=== PATIENT | male | born 1970 | race Caucasian/White ===

== ENCOUNTER → 2017-04-16 | Outpatient (CLI) | payer MEDICAID ==
[2017-04-16 15:44] LABS: MEAN CORPUSCULAR HEMOGLOBIN 32.1 pg (27.0-33.0); MEAN CORPUSCULAR HGB CONC 34.9 g/dl (32.0-36.5); MEAN CORPUSCULAR VOLUME 91.9 fl (80.0-96.0); RED CELL DISTRIBUTION WIDTH 12.6 % (11.5-14.5); WHITE BLOOD COUNT 8.3 K/mm3 (4.0-10.0)
[2017-04-16 16:20] LABS: ALBUMIN 3.8 GM/DL (3.2-5.2); ALBUMIN/GLOBULIN RATIO 1.12 (1.00-1.93); ALKALINE PHOSPHATASE 51 U/L (45-117); ALT/SGPT 37 U/L (12-78); ANION GAP 9 MEQ/L (8-16); AST/SGOT 19 U/L (15-37); BILIRUBIN,TOTAL 0.4 MG/DL (0.2-1.0); BLOOD UREA NITROGEN 16 MG/DL (7-18); CALCIUM LEVEL 8.9 MG/DL (8.5-10.1); CARBON DIOXIDE LEVEL 26 MEQ/L (21-32); CHLORIDE LEVEL 106 MEQ/L (98-107); CREATININE FOR GFR 1.22 MG/DL (0.70-1.30); DIGOXIN LEVEL 0.6 NG/ML (0.5-2.0); FREE T4 1.02 NG/DL (0.76-1.46); GLOMERULAR FILTRATION RATE > 60.0 (>60); GLUCOSE, FASTING 116 MG/DL (70-105); POTASSIUM SERUM 3.8 MEQ/L (3.5-5.1); SODIUM LEVEL 141 MEQ/L (136-145); TOTAL PROTEIN 7.2 GM/DL (6.4-8.2); URIC ACID 5.2 MG/DL (3.5-7.2)
== END ==
LOC: M LAB 14:59
PROVIDERS: ATTEND Family Medicine
DX: M10.9 Gout, unspecified (principal)

== ENCOUNTER 2017-06-25 12:40 | Emergency (ER) | payer MEDICAID, OTHER, SELFPAY ==
[~2017-06-25] VITALS: Ht 180.3 cm; Wt 90.1 kg
[2017-06-25] MEDS ORDERED: ALLO15TA PO (12:59)
[2017-06-25] MEDS ORDERED: PRAD150C PO (12:59)
[2017-06-25] MEDS ORDERED: COLC1TAB13 PO (12:59)
[2017-06-25] MEDS ORDERED: DIGO0.25 PO (12:59)
[2017-06-25] MEDS ORDERED: LEVO100T5 PO (12:59)
[2017-06-25] MEDS ORDERED: ATOR40TA75 PO (12:59)
[2017-06-25] MEDS ORDERED: FURO20TA2 PO (12:59)
[2017-06-25] MEDS ORDERED: METO-398 PO (12:59)
[2017-06-25] MEDS ORDERED: LISI10TA4 PO (12:59)
[2017-06-25] MEDS ORDERED: FENO134C PO (12:59)
[2017-06-25 14:01] LABS: BASO # 0.1 K/mm3 (0.0-0.2); BASO % 0.6 % (0.0-1.0); EOS # 0.2 K/mm3 (0.0-0.50); EOS % 1.4 % (0.0-3.0); LARGE UNSTAINED CELL # 0.1 K/mm3 (0.0-0.4); LYMPH # 2.3 K/mm3 (1.5-4.5); LYMPH % 21.2 % (24.0-44.0); MEAN CORPUSCULAR HEMOGLOBIN 31.3 pg (27.0-33.0); MEAN CORPUSCULAR HGB CONC 34.5 g/dl (32.0-36.5); MEAN CORPUSCULAR VOLUME 90.8 fl (80.0-96.0); MONO # 0.4 K/mm3 (0.0-0.8); MONO % 3.6 % (0.0-5.0); NEUTROPHILS # 7.5 K/mm3 (1.8-7.7); NEUTROPHILS % 72.3 % (36.0-66.0); PLATELET COUNT, AUTOMATED 226 k/mm3 (150-450); RED CELL DISTRIBUTION WIDTH 12.6 % (11.5-14.5); WHITE BLOOD COUNT 10.4 K/mm3 (4.0-10.0)
[2017-06-25 14:05] LABS: INR 1.13
[2017-06-25 14:12] LABS: MICROSCOPIC INDICATED? MAN YES (NO)
[2017-06-25 14:14] LABS: BACTERIA, URINE MOD AMOUNT; HYALINE CAST, URINE NONE SEEN /lpf (0-1); MICROSCOPIC EXAM PERFORMED; RBC, URINE TNTC /hpf (0-3); SQUAMOUS EPITHELIAL CELL URINE 0 /hpf (SMALL AMT); WBC, URINE 40-50 /hpf (0-3)
[2017-06-25 14:19] LABS: ANION GAP 7 MEQ/L (8-16); BLOOD UREA NITROGEN 13 MG/DL (7-18); CALCIUM LEVEL 9.5 MG/DL (8.5-10.1); CARBON DIOXIDE LEVEL 28 MEQ/L (21-32); CHLORIDE LEVEL 106 MEQ/L (98-107); CREATININE FOR GFR 1.04 MG/DL (0.70-1.30); GLOMERULAR FILTRATION RATE > 60.0 (>60); GLUCOSE, FASTING 109 MG/DL (70-105); POTASSIUM SERUM 4.1 MEQ/L (3.5-5.1); SODIUM LEVEL 141 MEQ/L (136-145)
[2017-06-25] MEDS ORDERED: CIPR-249 PO (14:42)
[2017-06-25 14:43] VITALS: BP 130/87
[2017-06-25] MEDS ORDERED: CIPROFLOXACIN 500 MG TAB PO ONE (14:45)
== END 2017-06-25 14:49 | disposition home or self-care (01) ==
LOC: M ED 12:40
DX: N30.01 Acute cystitis with hematuria (principal); I11.0 Hypertensive heart disease with heart failure; E07.9 Disorder of thyroid, unspecified; M10.9 Gout, unspecified; Z79.899 Other long term (current) drug therapy

== ENCOUNTER → 2017-07-23 | Outpatient (REF) | payer MEDICAID, OTHER, SELFPAY ==
[~2017-07-23] MED LIST: ALLO15TA PO; ATOR40TA75 PO; CIPR-249 PO; COLC1TAB13 PO; DIGO0.25 PO; FENO134C PO; FURO20TA2 PO; LEVO100T5 PO; LISI10TA4 PO; METO-398 PO; PRAD150C PO
== END ==
LOC: M SFHCLERA 16:49
PROVIDERS: ATTEND Family Medicine
DX: R31.9 Hematuria, unspecified (principal)

== ENCOUNTER → 2017-12-23 | Outpatient (REF) | payer OTHER | LOC: M SFHCLERA 08:19 | DX: I48.2 Chronic atrial fibrillation (principal); I10 Essential (primary) hypertension; M10.9 Gout, unspecified ==

== ENCOUNTER 2018-01-13 15:54 | Emergency (ER) | payer OTHER ==
[2018-01-13 17:06] LABS: KETONE, URINE AUTO RFX NEGATIVE (NEGATIVE); LEUKOCYTE ESTERASE UR AUTO RFX NEGATIVE (NEGATIVE); MUCUS, URINE RFX SMALL (NEGATIVE); NITRITE, URINE AUTO RFX NEGATIVE (NEGATIVE); RBC, URINE AUTO RFX TNTC /HPF (0-3); SQUAM EPITHELIAL CELL UR AURFX 0 /HPF (0-6); WBC, URINE AUTO RFX 6 /HPF (0-3)
[2018-01-13] MEDS: NS 1,000 ML IV (18:45)
[2018-01-13 19:10] LABS: BASO # 0.1 10^3/uL (0.0-0.2); BASO % 0.5 % (0.0-1.0); EOS # 0.3 10^3/uL (0.0-0.50); EOS % 2.3 % (0.0-3.0); HEMATOCRIT 41.7 % (42.0-52.0); HEMOGLOBIN 14.4 g/dl (14.0-18.0); IMMATURE GRANULOCYTE % 0.3 % (0-3.0); LYMPH # 3.4 10^3/uL (1.5-4.5); LYMPH % 28.3 % (24.0-44.0); MEAN CORPUSCULAR HEMOGLOBIN 31.2 pg (27.0-33.0); MEAN CORPUSCULAR HGB CONC 34.5 g/dl (32.0-36.5); MEAN CORPUSCULAR VOLUME 90.3 fl (80.0-96.0); MONO # 0.8 10^3/uL (0.0-0.8); MONO % 6.3 % (0.0-5.0); NEUTROPHILS # 7.4 10^3/uL (1.8-7.7); NEUTROPHILS % 62.3 % (36.0-66.0); PLATELET COUNT, AUTOMATED 238 10^3/uL (150-450); RED BLOOD COUNT 4.62 10^6/uL (4.30-6.10); RED CELL DISTRIBUTION WIDTH 13.3 % (11.5-14.5); WHITE BLOOD COUNT 11.9 10^3/uL (4.0-10.0)
[2018-01-13 19:30] LABS: ALBUMIN 4.1 GM/DL (3.2-5.2); ALBUMIN/GLOBULIN RATIO 1.08 (1.00-1.93); ALKALINE PHOSPHATASE 58 U/L (45-117); ALT/SGPT 33 U/L (12-78); ANION GAP 6 MEQ/L (8-16); AST/SGOT 23 U/L (7-37); BILIRUBIN,DIRECT < 0.1 MG/DL (0.0-0.2); BILIRUBIN,TOTAL 0.2 MG/DL (0.2-1.0); BLOOD UREA NITROGEN 15 MG/DL (7-18); CALCIUM LEVEL 9.1 MG/DL (8.5-10.1); CARBON DIOXIDE LEVEL 30 MEQ/L (21-32); CHLORIDE LEVEL 106 MEQ/L (98-107); CREATININE FOR GFR 1.02 MG/DL (0.70-1.30); GLOMERULAR FILTRATION RATE > 60.0 (>60); GLUCOSE, FASTING 95 MG/DL (70-100); SODIUM LEVEL 142 MEQ/L (136-145); TOTAL PROTEIN 7.9 GM/DL (6.4-8.2)
== END 2018-01-13 20:43 | disposition home or self-care (01) ==
LOC: M ED 15:54
DX: N30.91 Cystitis, unspecified with hematuria (principal); E86.0 Dehydration; I11.0 Hypertensive heart disease with heart failure; I50.9 Heart failure, unspecified; E78.5 Hyperlipidemia, unspecified; E03.9 Hypothyroidism, unspecified; I48.91 Unspecified atrial fibrillation; G47.33 Obstructive sleep apnea (adult) (pediatric); M10.9 Gout, unspecified; Z79.01 Long term (current) use of anticoagulants; F12.20 Cannabis dependence, uncomplicated
CPT/HCPCS: 82248

== ENCOUNTER 2018-07-04 19:15 | Emergency (ER) | payer OTHER ==
[2018-07-04] MEDS: ADACEL/BOOSTRIX VACCINE (DIPHTH/PERTUSS/ACELL/TETANUS)0.5ML SYR (90715) IM (19:43)
== END 2018-07-04 19:55 | disposition home or self-care (01) ==
LOC: M ED 19:15
DX: S30.811A Abrasion of abdominal wall, initial encounter (principal); X95.8XXA Assault by other firearm discharge, initial encounter; Y92.89 Other specified places as the place of occurrence of the external cause; I11.0 Hypertensive heart disease with heart failure; I50.9 Heart failure, unspecified; Z79.899 Other long term (current) drug therapy; Z79.890 Hormone replacement therapy
CPT/HCPCS: 90715

== ENCOUNTER 2018-07-19 09:43 | Emergency (ER) | payer OTHER | END 2018-07-19 11:11 | disposition home or self-care (01) | LOC: M ED 09:43 | DX: S20.212S Contusion of left front wall of thorax, sequela (principal); X95.8XXS Assault by other firearm discharge, sequela; Y92.89 Other specified places as the place of occurrence of the external cause; Y93.9 Activity, unspecified; Y99.9 Unspecified external cause status; I48.91 Unspecified atrial fibrillation; I50.9 Heart failure, unspecified; I10 Essential (primary) hypertension; G47.30 Sleep apnea, unspecified; E03.9 Hypothyroidism, unspecified; M10.9 Gout, unspecified; F12.10 Cannabis abuse, uncomplicated; Z79.899 Other long term (current) drug therapy | CPT/HCPCS: 71101 ==

== ENCOUNTER → 2019-07-26 | Outpatient (CLI) | payer OTHER ==
[~2019-07-26] MED LIST changes: -ALLO15TA PO; +ALLO300T2 PO; -METO-398 PO; +METO200T28 PO; -PRAD150C PO; +PRAD150C6 PO
[2019-07-26 06:48] LABS: BASO # 0.1 10^3/uL (0.0-0.2); BASO % 0.8 % (0.0-1.0); EOS # 0.3 10^3/uL (0.0-0.50); EOS % 3.3 % (0.0-3.0); HEMOGLOBIN 15.2 g/dl (13.5-17.5); LYMPH # 2.8 10^3/uL (1.5-4.5); LYMPH % 28.6 % (24.0-44.0); MEAN CORPUSCULAR HEMOGLOBIN 31.9 pg (27.0-33.0); MEAN CORPUSCULAR HGB CONC 33.8 g/dl (32.0-36.5); MEAN CORPUSCULAR VOLUME 94.5 fl (80.0-96.0); MONO # 0.6 10^3/uL (0.0-0.8); MONO % 6.2 % (0.0-5.0); NEUTROPHILS % 60.9 % (36.0-66.0); PLATELET COUNT, AUTOMATED 244 10^3/uL (150-450); RED BLOOD COUNT 4.76 10^6/uL (4.30-6.10); WHITE BLOOD COUNT 9.8 10^3/uL (4.0-10.0)
[2019-07-26 07:16] LABS: HEMOGLOBIN A1c 5.4 %
[2019-07-26 07:27] LABS: ALBUMIN 3.7 GM/DL (3.2-5.2); ALT/SGPT 39 U/L (12-78); BILIRUBIN,TOTAL 0.6 MG/DL (0.2-1.0); BLOOD UREA NITROGEN 16 MG/DL (7-18); CALCIUM LEVEL 9.3 MG/DL (8.5-10.1); CARBON DIOXIDE LEVEL 27 MEQ/L (21-32); CHLORIDE LEVEL 110 MEQ/L (98-107); CHOLESTEROL LEVEL 118 MG/DL (<200); CHOLESTEROL RISK RATIO 3.277 (<5); CREATININE FOR GFR 1.08 MG/DL (0.70-1.30); GLOMERULAR FILTRATION RATE > 60.0 (>60); GLUCOSE, FASTING 99 MG/DL (70-100); HDL CHOLESTEROL 36 MG/DL (>40); LDL CHOLESTEROL 52 MG/DL (<100); NON-HDL-C 82 MG/DL; POTASSIUM SERUM 4.2 MEQ/L (3.5-5.1); SODIUM LEVEL 140 MEQ/L (136-145); TOTAL PROTEIN 7.4 GM/DL (6.4-8.2); TRIGLYCERIDES LEVEL 148 MG/DL (<150)
== END ==
LOC: M LAB 06:09
PROVIDERS: ATTEND Family Medicine
DX: M10.9 Gout, unspecified (principal)

== ENCOUNTER 2019-10-04 07:41 | Emergency (ER) | payer OTHER ==
[~2019-10-04] VITALS: Ht 180.3 cm; Wt 100.0 kg
[2019-10-04] MEDS ORDERED: MITI1CAP (07:48)
[2019-10-04] MEDS ORDERED: ELIQ5TAB (07:48)
[2019-10-04] MEDS ORDERED: FLUORESCEIN OPHTH 1 MG STRIP OD ONE (08:30)
[2019-10-04] MEDS ORDERED: TETRACAINE 0.5% OPHTH SOLN 4ML OD ONE (08:30)
[2019-10-04] MEDS ORDERED: ISOVUE-370 76% 100ML VIAL (Q9967) As Ordered ONE (09:15)
[2019-10-04 09:22] LABS: BASO # 0.1 10^3/uL (0.0-0.2); BASO % 0.9 % (0.0-1.0); EOS # 0.3 10^3/uL (0.0-0.5); EOS % 3.1 % (0.0-3.0); HEMATOCRIT 45.2 % (42.0-52.0); HEMOGLOBIN 15.4 g/dl (13.5-17.5); LYMPH # 2.6 10^3/uL (1.5-5.0); LYMPH % 29.7 % (24.0-44.0); MEAN CORPUSCULAR HEMOGLOBIN 30.7 pg (27.0-33.0); MEAN CORPUSCULAR HGB CONC 34.1 g/dl (32.0-36.5); MONO # 0.6 10^3/uL (0.0-0.8); MONO % 6.5 % (0.0-5.0); NEUTROPHILS # 5.3 10^3/uL (1.5-8.5); NEUTROPHILS % 59.6 % (36.0-66.0); PLATELET COUNT, AUTOMATED 217 10^3/uL (150-450); RED BLOOD COUNT 5.02 10^6/uL (4.30-6.10); WHITE BLOOD COUNT 8.8 10^3/uL (4.0-10.0)
--- NOTE | 2019-10-04 09:53 | REP ---
CT orbits: 10/04/2019. Indication: Preseptal swelling. Comparison: None. Technique: Axial images of the orbits were obtained following 75 ml IV Isovue 370 administration. Findings: There are no acute ocular or intraorbital abnormalities. Periosteal mucosal thickening is present within the ethmoid air cells. There is mild periosteal mucosal thickening as well as frothy secretions within the left greater than right frontal sinuses. The mastoid air cells are clear. Impression: No acute ocular or intraorbital abnormalities. Paranasal sinus mucosal disease. Electronically Signed by Andi Pina DO 10/04/2019 09:44 A
[2019-10-04] MEDS ORDERED: diphenhydrAMINE CREAM 30GM TOP STA (11:06)
[2019-10-04] MEDS ORDERED: CEFD300CAP PO (11:10)
[2019-10-04] MEDS ORDERED: CLEO300C2 PO (11:10)
[2019-10-04 11:49] VITALS: BP 125/93
== END 2019-10-04 11:54 | disposition home or self-care (01) ==
LOC: M ED 07:41
DX: L03.213 Periorbital cellulitis (principal); J32.9 Chronic sinusitis, unspecified; Z79.899 Other long term (current) drug therapy; Z80.1 Family history of malignant neoplasm of trachea, bronchus and lung; Z82.49 Family history of ischemic heart disease and other diseases of the circulatory system; Z95.818 Presence of other cardiac implants and grafts
CPT/HCPCS: 36415; 70481; 80047; 85025; 99284; Q9967

== ENCOUNTER → 2019-12-07 | Outpatient (REF) | payer OTHER ==
[~2019-12-07] MED LIST changes: +CEFD300CAP PO; +CLEO300C2 PO; +ELIQ5TAB; +MITI1CAP; +ULTR50TA8 PO
== END ==
LOC: M SFHCLERA 09:40
PROVIDERS: ATTEND Family Medicine
DX: E03.9 Hypothyroidism, unspecified (principal); I48.20 Chronic atrial fibrillation, unspecified; Z53.8 Procedure and treatment not carried out for other reasons

== ENCOUNTER → 2020-05-07 | Outpatient (REF) | payer OTHER ==
[2020-05-07 14:29] LABS: APPEARANCE, URINE CLOUDY (CLEAR); BACTERIA, URINE AUTO NEGATIVE (NEGATIVE); BILIRUBIN, URINE AUTO NEGATIVE (NEGATIVE); BLOOD, URINE BLOOD 3+ (NEGATIVE); COLOR, URINE RED (YELLOW); GLUCOSE, URINE (UA) AUTO NEGATIVE (NEGATIVE); KETONE, URINE AUTO NEGATIVE (NEGATIVE); LEUKOCYTE ESTERASE, URINE AUTO NEGATIVE (NEGATIVE); MUCUS, URINE SMALL (NEGATIVE); NITRITE, URINE AUTO NEGATIVE (NEGATIVE); PROTEIN, URINE AUTO 2+ mg/dL (NEGATIVE); RBC, URINE AUTO TNTC /HPF (0-3); SPECIFIC GRAVITY URINE AUTO 1.012 (1.002-1.035); SQUAMOUS EPITHELIAL CELL UR AU 0 /HPF (0-6); UROBILINOGEN, URINE AUTO 0.2 mg/dL (0.0-2.0); WBC, URINE AUTO 8 /HPF (0-3)
== END ==
LOC: M LAB REF 14:11
PROVIDERS: ATTEND Physician Assistant Medical
DX: R31.9 Hematuria, unspecified (principal)

== ENCOUNTER → 2020-05-18 | Outpatient (CLI) | payer OTHER ==
[~2020-05-18] MED LIST changes: +ALLO10TA PO; +COLC0.6T47 PO; -COLC1TAB13 PO; +DULO1CAP4 PO; -ELIQ5TAB; +ELIQ5TAB PO; +FLOM0.4C39 PO; +LISI10TA22 PO; -LISI10TA4 PO; +NEUR600T PO; +OXYC1TAB23 PO; +TIZA4CAP PO; +VOLT1GEL15 TD
[2020-05-18 08:51] LABS: PLATELET COUNT, AUTOMATED 275 10^3/uL (150-450)
[2020-05-18 09:08] LABS: INR 1.18; PROTHROMBIN TIME 14.7 SECONDS (11.8-14.0)
== END ==
LOC: M LAB 08:21
PROVIDERS: ATTEND Orthopaedic Surgery Hand Surgery
DX: Z01.812 Encounter for preprocedural laboratory examination (principal); M47.22 Other spondylosis with radiculopathy, cervical region

== ENCOUNTER → 2020-07-05 | Outpatient (CLI) | payer OTHER ==
[~2020-07-05] MED LIST changes: -COLC0.6T47 PO; +COLC1TAB13 PO; -LISI10TA22 PO; +LISI10TA4 PO
== END ==
LOC: M RAD 12:02
PROVIDERS: ATTEND Physician Assistant
DX: N20.0 Calculus of kidney (principal); R10.9 Unspecified abdominal pain

== ENCOUNTER → 2020-07-05 | Outpatient (REF) | payer OTHER ==
[~2020-07-05] MED LIST changes: -ALLO10TA PO; -DULO1CAP4 PO; +ELIQ5TAB; -ELIQ5TAB PO; -FLOM0.4C39 PO; -NEUR600T PO; -OXYC1TAB23 PO; -TIZA4CAP PO; -VOLT1GEL15 TD
== END ==
LOC: M LAB REF 10:37
PROVIDERS: ATTEND Physician Assistant
DX: N39.0 Urinary tract infection, site not specified (principal)

== ENCOUNTER → 2020-07-21 | Outpatient (CLI) | payer OTHER ==
[~2020-07-21] MED LIST changes: +ALLO10TA PO; +DULO1CAP4 PO; -ELIQ5TAB; +ELIQ5TAB PO; +FLOM0.4C39 PO; +NEUR600T PO; +OXYC1TAB23 PO; +TIZA4CAP PO; +VOLT1GEL15 TD
[2020-07-21 11:30] LABS: BLOOD UREA NITROGEN 19 MG/DL (7-18); C REACTIVE PROTEIN QUANTITATIV 0.52 MG/DL (0.00-0.30); CREATININE FOR GFR 1.24 MG/DL (0.70-1.30); GLOMERULAR FILTRATION RATE > 60.0 (>60); RHEUMATOID FACTOR QUANT < 10.0 IU/ML (<15.0)
[2020-07-31 19:08] LABS: ANTINUCLEAR ANTIBODIES DIRECT Negative (Negative); HLA-B27 Negative (.)
== END ==
LOC: M LAB 09:27
PROVIDERS: ATTEND Physician Assistant
DX: M48.02 Spinal stenosis, cervical region (principal)

== ENCOUNTER → 2020-08-03 | Outpatient (REF) | payer OTHER ==
[2020-08-03 18:18] LABS: BASO # 0.1 10^3/uL (0.0-0.2); BASO % 0.7 % (0.0-1.0); EOS # 0.5 10^3/uL (0.0-0.5); EOS % 5.2 % (0.0-3.0); HEMATOCRIT 43.1 % (42.0-52.0); HEMOGLOBIN 14.1 g/dl (13.5-17.5); LYMPH # 2.9 10^3/uL (1.5-5.0); LYMPH % 33.4 % (24.0-44.0); MEAN CORPUSCULAR HEMOGLOBIN 29.9 pg (27.0-33.0); MEAN CORPUSCULAR HGB CONC 32.7 g/dl (32.0-36.5); MEAN CORPUSCULAR VOLUME 91.3 fl (80.0-96.0); MONO # 0.5 10^3/uL (0.0-0.8); MONO % 5.6 % (0.0-5.0); NEUTROPHILS # 4.8 10^3/uL (1.5-8.5); NEUTROPHILS % 54.8 % (36.0-66.0); RED BLOOD COUNT 4.72 10^6/uL (4.30-6.10); WHITE BLOOD COUNT 8.7 10^3/uL (4.0-10.0)
[2020-08-03 18:31] LABS: PROTHROMBIN TIME 13.4 SECONDS (11.8-14.0)
[2020-08-03 18:36] LABS: BLOOD UREA NITROGEN 16 MG/DL (7-18); CALCIUM LEVEL 9.1 MG/DL (8.5-10.1); CARBON DIOXIDE LEVEL 30 MEQ/L (21-32); CHLORIDE LEVEL 106 MEQ/L (98-107); CREATININE FOR GFR 1.19 MG/DL (0.70-1.30); GLOMERULAR FILTRATION RATE > 60.0 (>60); GLUCOSE, FASTING 95 MG/DL (70-100); POTASSIUM SERUM 4.9 MEQ/L (3.5-5.1); SODIUM LEVEL 141 MEQ/L (136-145)
== END ==
LOC: M SFHCLUC 17:21
PROVIDERS: ATTEND Family Medicine
DX: Z01.812 Encounter for preprocedural laboratory examination (principal)

== ENCOUNTER → 2020-08-05 | Outpatient (CLI) | payer OTHER | LOC: M LABSMTC 09:11 | PROVIDERS: ATTEND Anesthesiology | DX: Z01.818 Encounter for other preprocedural examination (principal); Z11.59 Encounter for screening for other viral diseases; Z20.828 Contact with and (suspected) exposure to other viral communicable diseases | CPT/HCPCS: C9803; U0003 ==

== ENCOUNTER → 2020-08-05 | Outpatient (CLI) | payer OTHER ==
[2020-08-05 10:58] LABS: HEMATOCRIT 41.3 % (42.0-52.0); MEAN CORPUSCULAR HEMOGLOBIN 30.8 pg (27.0-33.0); MEAN CORPUSCULAR HGB CONC 33.9 g/dl (32.0-36.5); PLATELET COUNT, AUTOMATED 179 10^3/uL (150-450); RED BLOOD COUNT 4.54 10^6/uL (4.30-6.10); WHITE BLOOD COUNT 7.3 10^3/uL (4.0-10.0)
[2020-08-05 11:08] LABS: INR 1.02; PROTHROMBIN TIME 13.6 SECONDS (11.8-14.0)
[2020-08-05 11:09] LABS: PARTIAL THROMBOPLASTIN TIME 30.4 SECONDS (25.0-38.4)
[2020-08-05 11:25] LABS: BLOOD UREA NITROGEN 15 MG/DL (7-18); CALCIUM LEVEL 9.1 MG/DL (8.5-10.1); CARBON DIOXIDE LEVEL 29 MEQ/L (21-32); CHLORIDE LEVEL 106 MEQ/L (98-107); CREATININE FOR GFR 1.08 MG/DL (0.70-1.30); GLOMERULAR FILTRATION RATE > 60.0 (>60); GLUCOSE, FASTING 98 MG/DL (70-100); SODIUM LEVEL 140 MEQ/L (136-145)
== END ==
LOC: M LAB 09:23
PROVIDERS: ATTEND Nurse Practitioner Family
DX: Z01.812 Encounter for preprocedural laboratory examination (principal); N20.0 Calculus of kidney

== ENCOUNTER 2020-08-10 07:17 | Day surgery (SDC) | payer OTHER ==
[~2020-08-10] VITALS: Ht 180.3 cm; Wt 100.3 kg
[~2020-08-10 07:17] MED LIST changes: -DULO1CAP4 PO; +LIDOCAINE 1% MDV 20ML VIAL SQ PRN; +LR 1,000 ML IV ONE; +ceFAZolin SOD 2 GM in IV 1 EA IV ONE
[2020-08-10] MEDS ORDERED: dexameTHASONE 4 MG/ML 1ML VIAL (J1100 PER 1MG) As Ordered ONE (07:22)
[2020-08-10] MEDS ORDERED: propofoL 500 MG/50 ML VIAL As Ordered ONE (07:22)
[2020-08-10] MEDS ORDERED: LIDOCAINE 2% 100MG/5ML SDV (FOR ANES.) As Ordered ONE (07:22)
[2020-08-10] MEDS ORDERED: ONDANSETRON 4MG/2ML VIAL As Ordered ONE (07:22)
[2020-08-10] MEDS ORDERED: fentaNYL 100 MCG/2 ML INJECTION (J3010) As Ordered ONE (08:00)
[2020-08-10] MEDS ORDERED: OXYC1TAB23 PO (08:28)
--- NOTE | 2020-08-10 08:58 | ROOPDOC ---
[facility] Report Of Operation Report of Operation DATE OF PROCEDURE: 08/10/20 PREPROCEDURE DIAGNOSIS: Kidney stone. POSTPROCEDURE DIAGNOSIS: Kidney stone. PROCEDURE: Right extracorporeal shock wave lithotripsy. SURGEON: Miri Puente MD MANAGER EQUITY: None. ANESTHESIA: Monitored anesthesia care (MAC). OPERATIVE INDICATIONS: This is a 49-year-old male recently found to have an 11mm stone in his right renal pelvis. He was brought to the operating room today for treatment. DESCRIPTION OF PROCEDURE: The patient was brought to the operating room and monitored anesthesia care (MAC) was administered. Prophylactic antibiotics were infused. He was then placed in a supine position in preparation for right-sided extr acorporeal shock wave lithotripsy. Fluoroscopy was utilized to monitor stone position and fragmentation throughout the procedure. Shock waves were then delivered to the 11 mm stone, ungated. There were no arrhythmias. The stone did appear to fragment well. After 2500 shocks, the procedure was concluded. The patient was then awakened from anesthesia and transported to the recovery room in stable condition. Estimated blood loss: Zero mL. Complications: None. Specimens: None. Plan: The patient will followup in the clinic in a few weeks with imaging prior to assess for residual stone burden. MIRI PUENTE MD Aug 10, 2020 08:58
[2020-08-10 09:45] VITALS: BP 125/90
[2020-08-10] MEDS ORDERED: PERCOCET 5MG/325MG TAB PO PRN (10:00)
[2020-08-10] MEDS ORDERED: ONDANSETRON 4MG/2ML VIAL IV PRN (10:00)
[2020-08-10] MEDS ORDERED: fentaNYL 100 MCG/2 ML INJECTION (J3010) IV PRN (10:00)
[2020-08-10] MEDS ORDERED: LR 1,000 ML IV SCH (10:00)
--- NOTE | 2020-08-28 11:49 | REP ---
ABDOMINAL RADIOGRAPHS: CLINICAL: Kidney stone. COMPARISON: 07/05/20 TECHNIQUE: Two supine views of the abdomen and pelvis. FINDINGS: There is a 9-10 mm calculus in the right renal pelvis. No further obvious urinary tract calcifications are identified. The bowel gas pattern is nonspecific. No organomegaly. Skeletal structures are intact. IMPRESSION: 9-10 mm nonobstructing right renal calculus. MTDD
[2020-09-06] MEDS ORDERED: DULO1CAP4 PO (08:58)
== END 2020-08-10 09:58 | disposition home or self-care (01) ==
LOC: M SDC 07:17
PROVIDERS: ATTEND Urology
DX: N20.0 Calculus of kidney (principal)
CPT/HCPCS: 50590; 74018; J1100; J2405; J3010

== ENCOUNTER → 2020-08-28 | Outpatient (CLI) | payer OTHER ==
[~2020-08-28] MED LIST changes: +DULO1CAP4 PO; -LIDOCAINE 1% MDV 20ML VIAL SQ PRN; -LR 1,000 ML IV ONE; -ceFAZolin SOD 2 GM in IV 1 EA IV ONE
--- NOTE | 2020-09-06 10:00 | REP ---
KUB: SINGLE VIEW HISTORY: Kidney calculus. COMPARISON STUDY: 08/10/2020. COMPARISON CT STUDY: 07/14/2020. FINDINGS: There is an irregular oval-shaped calculus projecting at the right mid kidney measuring 9 mm in diameter. This is a little more central in the kidney lateral to its position on 08/10/2020. There is some vascular calcification. No ureteral or bladder calculus is seen. No left-sided calculus is observed. IMPRESSION: A 9-mm calculus intrarenal in position on todays KUB right kidney. MTDD
== END ==
LOC: M RAD 09:33
PROVIDERS: ATTEND Nurse Practitioner Women's Health
DX: N20.0 Calculus of kidney (principal)

== ENCOUNTER → 2020-08-30 | Outpatient (REF) | payer OTHER ==
[2020-09-07 18:08] LABS: Ca Ox Monohydrate 100 % (.); Size 3x5 mm (.)
== END ==
LOC: M SMT 13:20
PROVIDERS: ATTEND Nurse Practitioner Women's Health
DX: N20.0 Calculus of kidney (principal)

== ENCOUNTER → 2020-09-02 | Outpatient (CLI) | payer OTHER | LOC: M LABSMTC 09:35 | PROVIDERS: ATTEND Anesthesiology | DX: Z01.812 Encounter for preprocedural laboratory examination (principal); Z20.828 Contact with and (suspected) exposure to other viral communicable diseases | CPT/HCPCS: C9803; U0003 ==

== ENCOUNTER → 2020-09-04 | Outpatient (CLI) | payer OTHER ==
[2020-09-04 15:44] LABS: APPEARANCE, URINE CLEAR (CLEAR); BACTERIA, URINE AUTO NEGATIVE (NEGATIVE); BILIRUBIN, URINE AUTO NEGATIVE (NEGATIVE); BLOOD, URINE BLOOD NEGATIVE (NEGATIVE); COLOR, URINE YELLOW (YELLOW); GLUCOSE, URINE (UA) AUTO NEGATIVE (NEGATIVE); KETONE, URINE AUTO NEGATIVE (NEGATIVE); LEUKOCYTE ESTERASE, URINE AUTO NEGATIVE (NEGATIVE); NITRITE, URINE AUTO NEGATIVE (NEGATIVE); PROTEIN, URINE AUTO NEGATIVE (NEGATIVE); RBC, URINE AUTO 3 /HPF (0-3); SPECIFIC GRAVITY URINE AUTO 1.012 (1.002-1.035); SQUAMOUS EPITHELIAL CELL UR AU 0 /HPF (0-6); UROBILINOGEN, URINE AUTO 0.2 mg/dL (0.0-2.0); WBC, URINE AUTO 1 /HPF (0-3)
[2020-09-04 15:55] LABS: HEMATOCRIT 37.9 % (42.0-52.0); HEMOGLOBIN 12.5 g/dl (13.5-17.5); MEAN CORPUSCULAR HEMOGLOBIN 29.6 pg (27.0-33.0); MEAN CORPUSCULAR VOLUME 89.8 fl (80.0-96.0); RED BLOOD COUNT 4.22 10^6/uL (4.30-6.10); WHITE BLOOD COUNT 8.3 10^3/uL (4.0-10.0)
[2020-09-04 16:02] LABS: INR 1.03; PROTHROMBIN TIME 13.7 SECONDS (12.5-14.3)
[2020-09-04 16:03] LABS: PARTIAL THROMBOPLASTIN TIME 28.8 SECONDS (24.2-38.5)
[2020-09-04 16:13] LABS: CALCIUM LEVEL 9.6 MG/DL (8.5-10.1); CREATININE FOR GFR 1.42 MG/DL (0.70-1.30); GLOMERULAR FILTRATION RATE 56.4 (>60); POTASSIUM SERUM 3.8 MEQ/L (3.5-5.1)
--- NOTE | 2020-09-11 14:48 | REP ---
KUB ABDOMEN AND PELVIS HISTORY: Right renal stone. TECHNIQUE: Single AP view of the abdomen and pelvis is performed. FINDINGS: Bowel gas pattern is normal with no bowel obstruction. Oval calcification again overlies the mid right kidney 9 mm in diameter, unchanged since the prior study of 08/28/2020. There are mild vascular calcifications in the right pelvis. There are no new findings. IMPRESSION: Stable right renal calculus. MTDD
== END ==
LOC: M LAB 13:12
PROVIDERS: ATTEND Nurse Practitioner Women's Health
DX: Z01.818 Encounter for other preprocedural examination (principal); N20.0 Calculus of kidney

== ENCOUNTER 2020-09-07 10:31 | Day surgery (SDC) | payer OTHER ==
[~2020-09-07] VITALS: Ht 180.3 cm; Wt 98.4 kg
[~2020-09-07 10:31] MED LIST changes: +LR 1,000 ML IV ONE; +ceFAZolin SOD 2 GM in IV 1 EA IV ONE
[2020-09-07] MEDS ORDERED: MIDAZOLAM INJ 2MG/2ML VIAL (J2250 PER 1MG) As Ordered ONE (11:17)
[2020-09-07] MEDS ORDERED: ONDANSETRON 4MG/2ML VIAL As Ordered ONE (11:17)
[2020-09-07] MEDS ORDERED: propofoL 200 MG/20 ML VIAL As Ordered ONE (11:17)
[2020-09-07] MEDS ORDERED: fentaNYL 100 MCG/2 ML INJECTION (J3010) As Ordered ONE (11:17)
[2020-09-07] MEDS ORDERED: LIDOCAINE 2% 100MG/5ML SDV (FOR ANES.) As Ordered ONE (11:17)
[2020-09-07] MEDS ORDERED: OXYC1TAB23 PO (11:43)
[2020-09-07] MEDS ORDERED: FLOM0.4C39 PO (11:43)
[2020-09-07] MEDS ORDERED: KETAMINE HCL 200 MG/20 ML VIAL As Ordered ONE (12:08)
--- NOTE | 2020-09-07 12:22 | ROOPDOC ---
[facility] Report Of Operation Report of Operation DATE OF PROCEDURE: 09/07/20 PREPROCEDURE DIAGNOSIS: Kidney stone. POSTPROCEDURE DIAGNOSIS: Kidney stone. PROCEDURE: Right extracorporeal shock wave lithotripsy (ESWL). SURGEON: Miri Puente MD ASSISTANT REFINERY OPERATOR: None. ANESTHESIA: Monitored anesthesia care (MAC). OPERATIVE INDICATIONS: This is a 49-year-old male recently who underwent a right ESWL approximately 1 month ago for an 8mm upper pole kidney stone. Follow up imaging was notable for a moderate sized fragment still present in the upper pole of the right kidney. He is brought back to the operating room today for a repeat ESWL to fragment the remainder of the stone. DESCRIPTION OF PROCEDURE: The patient was brought to the operating room and monitored anesthesia care (MAC) was administered. Prophylactic antibiotics were infused. He was then placed in the supine position for a right ESWL. Fluoroscopy and ultrasonography were utilized to monitor stone position and fragmentation throughout the procedure. Shock waves were then delivered to the kidney stone, ungated. The stone appeared to fragment well. There were no arrhythmias. After 2,000 shocks, the procedure was concluded. The patient was then awakened from anesthesia and transported to the recovery room in stable condition. Estimated blood loss: Zero mL. Complications: None. Specimens: None. Plan: The patient will followup in the clinic in a few weeks with imaging prior to assess for residual stone burden. MIRI PUENTE MD Sep 07, 2020 12:14
[2020-09-07 13:00] VITALS: BP 133/82
--- NOTE | 2020-09-12 08:08 | REP ---
KUB: SINGLE VIEW HISTORY: Right renal stone. COMPARISON: KUB study 09/04/2020. FINDINGS: There is an 8-mm calculus overlying the right mid renal silhouette on todays KUB unchanged from the comparison study. A phlebolith is noted in the right pelvis. The bowel gas pattern is unremarkable. Flank stripes are intact. No other pathologic calcification is seen. IMPRESSION: Intrarenal nephrolithiasis right kidney. An 8-mm stone right mid kidney. MTDD
== END 2020-09-07 13:11 | disposition home or self-care (01) ==
LOC: M SDC 10:31
PROVIDERS: ATTEND Urology
DX: N20.0 Calculus of kidney (principal); I10 Essential (primary) hypertension; I48.91 Unspecified atrial fibrillation; Z79.01 Long term (current) use of anticoagulants; Z79.899 Other long term (current) drug therapy; E78.5 Hyperlipidemia, unspecified; G47.30 Sleep apnea, unspecified; F12.10 Cannabis abuse, uncomplicated
CPT/HCPCS: 50590; 74018; J0690; J2250; J2405; J3010

== ENCOUNTER → 2020-09-13 | Outpatient (CLI) | payer OTHER ==
[~2020-09-13] MED LIST changes: -LR 1,000 ML IV ONE; -ceFAZolin SOD 2 GM in IV 1 EA IV ONE
== END ==
LOC: M LABSMTC 11:46
PROVIDERS: ATTEND Physical Medicine & Rehabilitation
DX: Z20.828 Contact with and (suspected) exposure to other viral communicable diseases (principal)

== ENCOUNTER → 2020-10-04 | Outpatient (CLI) | payer OTHER ==
--- NOTE | 2020-10-04 17:03 | REP ---
INDICATION: CALCULUS OF KIDNEY, FILE RM. COMPARISON: 09/07/2020. TECHNIQUE: AP view of the abdomen and pelvis performed. FINDINGS: Bowel gas pattern is normal with no evidence of bowel obstruction. There is a calcific density seen in a right paravertebral location at the L3-4 level, measuring 7 mm in diameter. This appears to be located in the right renal collecting system on the prior study. I presume is now 8 located in the right ureter. There are 2 tiny calcific densities seen just above that each measuring about 3 mm. No new pelvic calcifications are seen. IMPRESSION: Presumed right ureteral calculus 7 mm in diameter at the L3-4 level. There appear to be 2 tiny calcific densities just above that as well within the right ureter. <Electronically signed by Mike House > 10/04/20 1317
== END ==
LOC: M RAD 13:56
PROVIDERS: ATTEND Nurse Practitioner Women's Health
DX: N20.0 Calculus of kidney (principal)

== ENCOUNTER → 2020-10-05 | Outpatient (REF) | payer OTHER | LOC: M SMT 13:08 | PROVIDERS: ATTEND Nurse Practitioner Women's Health | DX: N20.0 Calculus of kidney (principal) ==

== ENCOUNTER → 2020-10-23 | Outpatient (CLI) | payer OTHER ==
[2020-10-23 11:50] LABS: BLOOD UREA NITROGEN 14 MG/DL (7-18); CREATININE FOR GFR 1.18 MG/DL (0.70-1.30); GLOMERULAR FILTRATION RATE > 60.0 (>60)
== END ==
LOC: M LAB 10:15
PROVIDERS: ATTEND Physician Assistant
DX: M50.320 Other cervical disc degeneration, mid-cervical region, unspecified level (principal)

== ENCOUNTER 2021-03-10 10:11 | Emergency (ER) | payer OTHER ==
[~2021-03-10] VITALS: Ht 180.3 cm; Wt 103.3 kg
[~2021-03-10 10:11] MED LIST changes: +COLC0.6T47 PO; -COLC1TAB13 PO; +LISI10TA22 PO; -LISI10TA4 PO
[2021-03-10] MEDS ORDERED: GABA800T4 (10:22)
--- NOTE | 2021-03-10 11:42 | REP ---
INDICATION: FP h/o stones COMPARISON: 07/14/2020. TECHNIQUE: CT Scan of the abdomen and pelvis was performed without intravenous contrast. Sagittal and coronal reconstruction images performed. FINDINGS: Lung bases: Unremarkable. Liver: Grossly unremarkable. Gallbladder: Unremarkable. Spleen: Grossly unremarkable.. Adrenals: Normal. Pancreas: Grossly unremarkable.. Kidneys: There is a punctate calculus in the right lower pole collecting system, and 2 others in the left mid and lower renal collecting systems. There is moderate right hydroureteronephrosis which is caused by a 6 mm calculus in the distal right ureter just above the level of the hip joint, and there is another 3 mm calculus just superior to that in the right ureter. Small and large bowel: Grossly unremarkable. Free fluid: None. Abdominal aorta: No aneurysm. Adenopathy: None. Appendix: Not inflamed. Osseous structures: Unremarkable. Pelvis: No mass. No bladder calculus seen. IMPRESSION: There is moderate right hydroureteronephrosis which is caused by a 6 mm calculus in the distal right ureter just above the level of the hip joint, and there is another 3 mm calculus just superior to that in the right ureter. <Electronically signed by Mike House > 03/10/21 113
[2021-03-10] MEDS ORDERED: FLOM0.4C39 PO (12:19)
[2021-03-10 12:29] VITALS: BP 140/80
== END 2021-03-10 12:31 | disposition home or self-care (01) ==
LOC: M ED 10:11
DX: N13.39 Other hydronephrosis (principal); I11.0 Hypertensive heart disease with heart failure; I50.9 Heart failure, unspecified; E78.5 Hyperlipidemia, unspecified; I48.91 Unspecified atrial fibrillation; G47.30 Sleep apnea, unspecified; E03.9 Hypothyroidism, unspecified; G89.29 Other chronic pain; M54.2 Cervicalgia; Z79.01 Long term (current) use of anticoagulants; Z79.899 Other long term (current) drug therapy

== ENCOUNTER → 2021-04-03 | Outpatient (REF) ==
[~2021-04-03] MED LIST changes: +GABA800T4
--- NOTE | 2021-04-03 14:06 | REP ---
INDICATION: DDD. COMPARISON: Comparison right shoulder radiographs November 11, 2019.. TECHNIQUE: Three views of the right shoulder are provided. FINDINGS: The right glenohumeral and right acromioclavicular joints are normally aligned. Periarticular soft tissues are unremarkable. No fracture or subluxation is seen. The visualized right hemithorax structures are unremarkable. IMPRESSION: Negative right shoulder radiographs. <Electronically signed by Nickolas Burns > 04/03/21 [id number]
--- NOTE | 2021-04-03 14:27 | REP ---
INDICATION: DDD. COMPARISON: None. TECHNIQUE: AP, lateral, swimmer's, and open-mouth views of the cervical spine. FINDINGS: Alignment and lordosis maintained. Vertebral bodies are intact and there is no acute fracture/compression injury or subluxation. Mild/moderate endplate sclerosis and disc space narrowing with subtle marginal spurring at C6-7. Remainder of the examination is essentially age-appropriate. IMPRESSION: Mild/moderate focal degenerative spondylosis at C6-7. <Electronically signed by Hill Root > 04/03/21 [id number]
== END ==
LOC: M RAD 08:03
PROVIDERS: ATTEND Internal Medicine
DX: M54.5 Low back pain (principal)

== ENCOUNTER → 2021-07-02 | Outpatient (CLI) | payer OTHER ==
[~2021-07-02] MED LIST changes: +PREG25CA2
[2021-07-02 14:22] LABS: BLOOD UREA NITROGEN 14 MG/DL (7-18); GLOMERULAR FILTRATION RATE > 60.0 (>56)
== END ==
LOC: M LAB 12:33
PROVIDERS: ATTEND Internal Medicine Endocrinology, Diabetes & Metabolism
DX: M25.511 Pain in right shoulder (principal)

== ENCOUNTER → 2021-09-10 | Outpatient (CLI) | payer OTHER ==
[~2021-09-10] MED LIST changes: +ISOVUE-300 61% 50ML VIAL As Ordered ONE; -PREG25CA2; +PROHANCE 279.3MG/ML 5ML VIAL As Ordered ONE
--- NOTE | 2021-09-10 09:30 | REP ---
INDICATION: PAIN RT SHOULDER. COMPARISON: 11/30/2019 TECHNIQUE: Pre and post contrast 3T MRI of the right shoulder with MRI arthrogram was performed utilizing various sequences. The shoulder joint injection was performed by Mayco DIAZ. FINDINGS: The pre injection portion of the examination shows hypertrophic degenerative change involving the acromioclavicular joint which is moderate. The acromion process is type 1 status quo. There is patchy and linear T2 hyper signal seen in the supraspinatus tendon increased from the prior exam. There is no evidence of musculotendinous retraction. Mild supraspinatus muscle atrophy has developed. There is no evidence of coracohumeral or coracoacromial ligamentous thickening. There is no significant change in appearance of the subscapularis, infraspinatus, or teres minor tendons. There is no glenohumeral joint effusion. There is a small amount of fluid the subcoracoid recess. Linear T2 hyper signal changes have developed/increased compared to the prior exam. The post injection portion examination shows linear hyper signal in the superior labrum nearly anterior to posterior. There is anterior superior labral truncation. None of the injected fluid has migrated superior to the supraspinatus tendon. IMPRESSION: 1. There is a SLAP tear or nearly a SLAP tear. 2. Supraspinatus tendinitis/tendinosis which is increased from the prior exam. 3. AC joint DJD. 4. Mild supraspinatus muscle atrophy. 5. Other findings as described above. <Electronically signed by Luke Henley > 09/10/21 9901
--- NOTE | 2021-09-10 16:39 | REP ---
INDICATION: PAIN RT SHOULDER. COMPARISON: None TECHNIQUE: The procedure was performed by JOE Mccrary, under the direct supervision of Dr. House. The benefits and risks of the procedure were explained to the patient, and an informed consent was obtained. Directly prior to the start of the procedure, a formal time-out was completed in the procedure room. The right glenohumeral joint space was localized using fluoroscopic guidance. The skin was prepped and draped in a sterile fashion. Approximately 5 mL of 1% Lidocaine 10 mg/ml was used as a local anesthetic. Using fluoroscopic guidance, a #22 gauge spinal needle was inserted and advanced into the right glenohumeral joint space. Approximately 1 mL of Isovue 300 was injected to verify placement. Twelve mL of a solution containing 20 mL of sterile saline and 0.15 mL of ProHance was injected into the joint space. The needle was removed and the patient was taken to MRI for post procedural imaging. FINDINGS: The patient tolerated the procedure well and there were no immediate complications. IMPRESSION: Fluoroscopically guided right shoulder MRI arthrogram injection. 0.1 minutes of fluoroscopy time was utilized for this procedure. Some fluoroscopic images are performed with last image hold technology. These images require no additional radiation. <Electronically signed by Nissa Kerr > 09/10/21 0947 <Electronically signed by Mike House > 09/10/21 [id number]
== END ==
LOC: M RADPRO 06:22
PROVIDERS: ATTEND Physician Assistant Surgical
DX: R93.7 Abnormal findings on diagnostic imaging of other parts of musculoskeletal system (principal); M25.511 Pain in right shoulder
CPT/HCPCS: 23350; 73223; 77002; A9576; Q9967

== ENCOUNTER → 2021-09-13 | Outpatient (CLI) | payer OTHER ==
--- NOTE | 2021-09-13 09:15 | REP ---
INDICATION: LT SHOULDER PAIN ? LABRUM TEAR VS RCT. COMPARISON: None. TECHNIQUE: Coronal oblique T1, T2 fat sat, sagittal oblique T2 fat sat, axial T2 fat sat, gradient echo. Post arthrogram T1 fat sat and T2 fat sat in multiple planes. FINDINGS: Rotator cuff: There is tendinopathy/tendinitis of the subscapularis, supraspinatus and infraspinatus tendons. No discrete rotator cuff tendon tear is seen. Acromioclavicular joint: There are mild hypertrophic degenerative changes of the acromioclavicular joint Acromion: Type 2 Biceps Tendon: In bicipital groove, no tenosynovitis. Hill Sach's deformity: None. Deltoid muscle: No abnormal signal. Biceps labral complex: There is a tear at the base of the biceps labral complex. Labrum: There is a diffuse SLAP tear. Cartilage: There is mild chondromalacia at the glenohumeral joint with no focal cartilaginous defect. Bone marrow: No significant abnormal signal. Joint fluid: No effusion. IMPRESSION: Tendinopathy/tendinitis of the subscapularis, supraspinatus and infraspinatus tendons. No discrete rotator cuff tendon tear. There are mild hypertrophic degenerative changes of the acromioclavicular joint. There is a diffuse SLAP tear which also involves the base of the biceps labral complex. <Electronically signed by Mike House > 09/13/21 0911
--- NOTE | 2021-09-13 17:31 | REP ---
INDICATION: LT SHOULDER PAIN ? LABRUM TEAR VS RCT. COMPARISON: None TECHNIQUE: The procedure was performed by JOE Ospina, under the direct supervision of Dr. House. The benefits and risks of the procedure were explained to the patient, and an informed consent was obtained. Directly prior to the start of the procedure, a formal time-out was completed in the procedure room. The left shoulder joint space was localized using fluoroscopic guidance. The skin was prepped and draped in a sterile fashion. Approximately 5 mL of 1% Lidocaine 10 mg/ml was used as a local anesthetic. Using fluoroscopic guidance, a #22 gauge spinal needle was inserted and advanced into the left shoulder joint space. Approximately 1 mL of Isovue 300 was injected to verify placement. Ten mL of a solution containing 20 mL of sterile saline and 0.15 mL of ProHance was injected into the joint space. The needle was removed and the patient was taken to MRI for post procedural imaging. FINDINGS: The patient tolerated the procedure well and there were no immediate complications. IMPRESSION: The patient tolerated the procedure well. MRI imaging was performed immediately after the procedure. 0.1 minutes of fluoroscopy time was utilized for this procedure. Some fluoroscopic images are performed with last image hold technology. These images require no additional radiation. <Electronically signed by Cleopatra Mccabe > 09/13/21 1200 <Electronically signed by Mike House > 09/13/21 9347
== END ==
LOC: M RADPRO 06:32
PROVIDERS: ATTEND Physician Assistant Surgical
DX: M25.512 Pain in left shoulder (principal)
CPT/HCPCS: 23350; 73223; 77002; A9576; Q9967

== ENCOUNTER 2021-10-02 11:16 | Emergency (ER) | payer OTHER ==
[~2021-10-02] VITALS: Ht 180.3 cm; Wt 104.5 kg
[~2021-10-02 11:16] MED LIST changes: -ISOVUE-300 61% 50ML VIAL As Ordered ONE; -PROHANCE 279.3MG/ML 5ML VIAL As Ordered ONE
[2021-10-02 11:19] VITALS: BP 140/103
[2021-10-02] MEDS ORDERED: PREG25CA2 (13:11)
--- OUTSIDE RECORDS SUMMARY | 2021-10-02 13:21 | CCD ---
Continuity of Care Document (CCD) Created on: 08/03/2021 Pascual Loya External Reference #: [id number] : [id number] Sex: Male Author Author Pascual WIN P.A[facility] 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 Role Phone Mike Davis MD AUTM [phone] Quincy Gonzalez DO AUTM [phone] Problems Active Problems Provider Date Essential hypertension Foreign Farley MD Onset: 12/28/2019 Pure hypercholesterolemia Foreign Farley MD Onset: 020 Social History Type Date Description Comments Sex Unknown ETOH Use Rarely consumes alcohol Tobacco Use Start: Unknown Patient has never smoked Smoking Status Reviewed: 05/24/21 Patient has never smoked Allergies, Adverse Reactions, Alerts Description No Known Drug Allergies Medications Active Medications SIG Qnty Indications Ordering Provide r Date Valium 5mg Tablets take one half hour prior to mri..may repeat in 30 minutes if no effect..do not drive to or from mri 2tabs Neeraj Norton MD 08/02/2021 Medrol 4mg Tablets dose flower, take as directed on sheet 1tabs M47.22 Neeraj Norton MD 05/17/2021 Lyrica 25mg Capsules 1 by mouth at bedtime for one week, 2 by mouth for one week, then 3x a day. (weaning off gabapentin as directed) 60caps M50.320 Rashad Peters MD 04/27/2021 Gabapentin 800mg Tablets take one tablet by mouth three times a day (wc) 90tabs M47.22 Foreign Farley MD 12/19/2020 Duloxetine HCL 20mg Caps DR Part 2 by mouth every morning (WC) 60caps Foreign Farley MD 05/2020 Tizanidine HCL 4mg Tablets 1/2 to 1 by mouth three times a day as needed for spasm (wc) 90tabs M47.22 Rashad Peters MD 01/06/2020 Diclofenac Sodium 1% Gel apply 2 grams to neck and right shoulder three times a day workers comp 200gm M47.22 Foreign Farley MD 01/06/2020 Atorvastatin Calcium 40mg Tablets Take One Tablet By Mouth Every Day Unknown Eliquis 5mg Tablets Take One Tablet By Mouth Twice A Day as Directed Unknown Furosemide 20mg Tablets Take One Tablet By Mouth Every Day Unknown Fenofibrate Micronized 134mg Capsu les Take One Capsule By Mouth Every Day With Meals For High Triglycerides Unknown Lisinopril 10mg Tablets Unknown Metoprolol Succinate ER 200mg Tablets ER 24HR Take One Tablet By Mouth Every Day Unknow n Allopurinol 300mg Tablets Unknown Tamsulosin HCL 0.4mg Capsules M50.220 Unknown Immunizations Description No Information Available Vital Signs Date Vital Result Comment 05/24/2021 11:20am Body Temperature 97.1 F Height 70 inches 5'10" Weight 214.50 lb BMI (Body Mass Index) 30.8 kg/m2 01/12/2021 11:01am Body Temperature 97.7 F Height 70 inches 5'10" Weight 233.12 lb BMI (Body Mass Index) 33.4 kg/m2 Results Test Acquired Date Facility Test Result H/L Range Note Laboratory test finding 07/02/2021 [facility] [address] [place] [address] (315)- - Blood Urea Nitrogen 14 mg/dL Normal 7-18 Creatinine With GFR 07/02/2021 [facility] [address] [place] [address] (315)- - Creatinine For GFR 1.10 mg/dL Normal 0.70-1.30 Glomerular Filtration Rate > 60.0 Normal >56 1 1 Units are mL/min/1.73 m2 Chronic Kidney Disease Staging per NKF: Stage I & II GFR >=60 Normal to Mildly Decreased Stage III GFR 30-59 Moderately Decreased Stage IV GFR 15-29 Severely Decreased Stage V GFR <15 Very Little GFR Left ESRD 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 M47.22 Other spondylosis with radiculopathy, cervical region M25.511 Pain in right shoulder M25.512 Pain in left shoulder G56.01 Carpal tunnel syndrome, righ t upper limb Office Visit 05/24/2021 10:45a [place] MD G56.01 Carpal tunnel syndrome, right upper limb M47.22 Other spondylosis with radic ulopathy, cervical region M25.511 Pain in right shoulder M75.81 Other shoulder lesions, righ t shoulder Office Visit 05/17/2021 8:45a Mayda Peters PA-C G56.01 Carpal tunnel syndrome, right upper limb M25.511 Pain in right shoulder M25.512 Pain in left shoulder Office Visit 04/27/2021 11:00a Mayda Win P.A. M47.22 Other spondylosis with radiculopathy, cervical region M50.320 Other cerv disc degeneration , mid-cervical rgn, unsp level M48.02 Spinal stenosis, cervical re gion G56.01 Carpal tunnel syndrome, righ t upper limb M79.12 Myalgia of auxiliary muscles , head and neck M47.24 Other spondylosis with radic ulopathy, thoracic region M51.34 Other intervertebral disc de generation, thoracic region Office Visit 02/09/2021 9:30a Mayda Peters PA-C M25.512 Pain in left shoulder M25.511 Pain in right shoulder Assessments Date Code Description Provider 07/25/2021 M47.22 Other spondylosis with radiculop athy, cervical region Oh Win, P.A. 07/25/2021 M25.511 Pain in right shoulder Oh Win, P.A. 07/25/2021 M25.512 Pain in left shoulder Oh Win, P.A. 07/25/2021 G56.01 Carpal tunnel syndrome, right up per limb Oh Win, P.A. 05/24/2021 G56.01 Carpal tunnel syndrome, right up per limb Neeraj Norton MD 05/24/2021 M47.22 Other spondylosis with radiculop athy, cervical region Neeraj Norton MD 05/24/2021 M25.511 Pain in right shoulder Neeraj Norton MD 05/24/2021 M75.81 Other shoulder lesions, right sh oulder Neeraj Norton MD 05/17/2021 G56.01 Carpal tunnel syndrome, right up per limb LEXI MullinsC 05/17/2021 M25.511 Pain in right shoulder LEXI MullinsC 05/17/2021 M25.512 Pain in left shoulder Tonya LAmina Santos heath PA-C 04/27/2021 M47.22 Other spondylosis with radiculop athy, cervical region Oh Win, P.A. 04/27/2021 M50.320 Other cervical disc degeneration, mid-cervical region, unspecified level Oh Win, P.A. 04/27/2021 M48.02 Spinal stenosis, cervical region Oh Win, P.A. 04/27/2021 G56.01 Carpal tunnel syndrome, right up per limb Oh Win, P.A. 04/27/2021 M79.12 Myalgia of auxiliary muscles, he ad and neck Oh Win, P.A. 04/27/2021 M47.24 Other spondylosis with radiculop athy, thoracic region Oh Win, P.A. 04/27/2021 M51.34 Other intervertebral disc degene ration, thoracic region Oh Win, P.A. 02/09/2021 M25.512 Pain in left shoulder Tonya joe PA-C 02/09/2021 M25.511 Pain in right shoulder Tonya Peters PA-C Plan of Treatment Future Appointment(s):* 08/28/2021 9:00 am - Lance Michelle MD at [facility] 07/25/2021 - Oh Win, P.A.* M47.22 Other spondylosis with radiculopathy, cervical region* Follow up:* perm eval w/[facility] for neck perm eval w/[facility] for shayla shoulder * M25.511 Pain in right shoulder * M25.512 Pain in left shoulder * G56.01 Carpal tunnel syndrome, right upper limb Functional Status Description No Information Available Mental Status Description No Information Available Referrals Refer to Reason for Referral Status Appt Date Neeraj Norton MD MRI ARTHROGRAMS SHAYLA SHOULDER WRITTEN AUTH PASSED TO RADHA. GERMAINE Created [facility], [address] [place] [address] [phone]
--- OUTSIDE RECORDS SUMMARY | 2021-10-02 13:21 | CCD | Continuity of Care Document ---
Author Author Pascual STODDARD PA-C Organization Unknown Address [address] [place] [id number] Phone [phone] Care Team Providers Care Pigeon Fancier Name Role Phone Mike Davis MD AUTM [phone] Quincy Gonzalez DO AUTM [phone] Problems Active Problems Provider Date Essential hypertension Foreign Farley MD Onset: 12/28/2019 Pure hypercholesterolemia Foreign Farley MD Onset: 020 Social History Type Date Description Comments Sex Unknown ETOH Use Rarely consumes alcohol Tobacco Use Start: Unknown Patient has never smoked Smoking Status Reviewed: 05/24/21 Patient has never smoked Allergies and adverse reactions Description No Known Drug Allergies Medications Active Medications SIG Qnty Indications Ordering Provide r Date Valium 5mg Tablets take one half hour prior to mri..may repeat in 30 minutes if no effect..do not drive to or from mri 2tabs S43.431A Neeraj Norton MD 09/14/2021 Medrol 4mg Tablets dose flower, take as directed on sheet 1tabs S43.431A Neeraj Norton MD 09/14/2021 Valium 5mg Tablets take one half hour prior to mri..may repeat in 30 minutes if no effect..do not drive to or from mri 2tabs Neeraj Norton MD 08/02/2021 Medrol 4mg Tablets dose flower, take as directed on sheet 1tabs M47.22 Neeraj Norton MD 05/17/2021 Lyrica 25mg Capsules 1 by mouth tid 60caps M50.320 Neeraj Norton MD 04/27/2021 Gabapentin 800mg Tablets take one tablet by mouth three times a day (wc) 90tabs M47.22 Foreign Farley MD 12/19/2020 Duloxetine HCL 20mg Caps DR Part 2 by mouth every morning (WC) 60caps Foreign Farley MD 05/2020 Diclofenac Sodium 1% Gel apply 2 grams to neck and right shoulder three times a day workers comp 200gm M47.22 Foreign Farley MD 01/06/2020 Tizanidine HCL 4mg Tablets 1/2 to 1 by mouth three times a day as needed for spasm (wc) 90tabs M47.22 Rashad Stoddard MD 01/06/2020 Atorvastatin Calcium 40mg Tablets Take [...] H/L Range Note Laboratory test finding 07/02/2021 [facility] [address] [place] [address] (315)- - Blood Urea Nitrogen 14 mg/dL Normal 7-18 Creatinine With GFR 07/02/2021 [facility] [address] [place] [address] (315)- - Creatinine For GFR 1.10 mg/dL Normal 0.70-1.30 Glomerular Filtration Rate > 60.0 Normal >56 1 1 Units are mL/min/1.73 m2 Chronic Kidney Disease Staging per NKF: Stage I & II GFR >=60 Normal to Mildly Decreased Stage III GFR 30-59 Moderately Decreased Stage IV GFR 15-29 Severely Decreased Stage V GFR <15 Very Little GFR Left ESRD GFR <15 on WEATHER STRIPPER Procedures Date Code Description Status 09/14/2021 85094 Office/Outpatient Established Mo d MDM 30-39 Min Completed 07/25/2021 01564 Office/Outpatient Established Mo d MDM 30-39 Min Completed 05/24/2021 04119 Office/Outpatient Established Mo d MDM 30-39 Min Completed 05/17/2021 94208 Office/Outpatient Established Mo d MDM 30-39 Min Completed 04/27/2021 74888 Office/Outpatient Established Mo d MDM 30-39 Min Completed Medical Devices Description No Information Available Encounters Type Date Location Provider Dx Diagnosis Office Visit 09/14/2021 8:30a Mayda Stoddard PA-C S43.431 A Superior glenoid labrum lesion of right shoulder, init S43.432A Superior glenoid labrum lesi on of left shoulder, init encntr M19.012 Primary osteoarthritis, left shoulder M19.011 Primary osteoarthritis, righ t shoulder S46.011A Strain of musc/tend the rota tor cuff of right shoulder, init S46.012A Strain of musc/tend the rota tor cuff of left shoulder, init Office Visit 07/25/2021 10:15a [facility] Win, P.A. M47.22 Other spondylosis with radiculopathy, cervical region M25.511 Pain in right shoulder M25.512 Pain in left shoulder G56.01 Carpal tunnel syndrome, righ t upper limb Office Visit 05/24/2021 10:45a Detroithan Norton MD G56.01 Carpal tunnel syndrome, right upper limb M47.22 Other spondylosis with radic ulopathy, cervical region M25.511 Pain in right shoulder M75.81 Other shoulder lesions, righ t shoulder Office Visit 05/17/2021 8:45a Mayda Stoddard PA-C G56.01 Carpal tunnel syndrome, right upper limb M25.511 Pain in right shoulder M25.512 Pain in left shoulder Office Visit 04/27/2021 11:00a [place] Oh Win, P.A. M47.22 Other spondylosis with radiculopathy, cervical region M50.320 Other cerv disc degeneration , mid-cervical rgn, unsp level M48.02 Spinal stenosis, cervical re gion G56.01 Carpal tunnel syndrome, righ t upper limb M79.12 Myalgia of auxiliary muscles , head and neck M47.24 Other spondylosis with radic ulopathy, thoracic region M51.34 Other intervertebral disc de generation, thoracic region Assessments Date Code Description Provider 09/14/2021 S43.431A Superior glenoid lab rum lesion of right shoulder, initial encounter LEXI MullinsC 09/14/2021 S43.432A Superior glenoid lab rum lesion of left shoulder, initial encounter LEXI MullinsC 09/14/2021 M19.012 Primary osteoarthritis, left ana ulder Tonya FarrellELXI HerC 09/14/2021 M19.011 Primary osteoarthritis, right sh oulder Tonya NATANAEL Pradhan-C 09/14/2021 S46.011A Strain of muscle(s) and tendon(s) of the rotator cuff of right shoulder, initial encounter LEXI MullinsC 09/14/2021 S46.012A Strain of muscle(s) and tendon(s) of the rotator cuff of left shoulder, initial encounter LEXI MullinsC 07/25/2021 M47.22 Other spondylosis with radiculop athy, cervical region Oh Win, P.A. 07/25/2021 M25.511 Pain in right shoulder Oh Win, P.A. 07/25/2021 M25.512 Pain in left shoulder Oh Win, P.A. 07/25/2021 G56.01 Carpal tunnel syndrome, right up per limb Oh Win P.A. 05/24/2021 G56.01 Carpal tunnel syndrome, right up per limb Neeraj Norton MD 05/24/2021 M47.22 Other spondylosis with radiculop athy, cervical region Neeraj Norton MD 05/24/2021 M25.511 Pain in right shoulder Neeraj Norton MD 05/24/2021 M75.81 Other shoulder lesions, right sh oulder Neeraj Norton MD 05/17/2021 G56.01 Carpal tunnel syndrome, right up per limb Tonya Stoddard PA-C 05/17/2021 M25.511 Pain in right shoulder Tonya FarrellAmina JJ Stoddard 05/17/2021 M25.512 Pain in left shoulder Tonyaham Santos JJ joe 04/27/2021 M47.22 Other spondylosis with radiculop athy, [...] degene ration, thoracic region Oh Win, P.A. Plan of Treatment 09/14/2021 - Tonya Stoddard PA-C* S43.431A Superior glenoid labrum lesion of right shoulder, initial encounter* New Medication:* Medrol 4 mg - dose flower, take as directed on sheet * Valium 5 mg - take one half hour prior to mri..may repeat in 30 minutes if no effect..do not drive to or from mri * New Xrays:* MRI Cervical Spine, Ordered: 09/14/21 * Fluroscopic xray guided injection rt shoulder, Ordered: 09/14/21 * Follow up:* after cervical spine MRI with BLB per [facility] * S43.432A Superior glenoid labrum lesion of left shoulder, initial encounter * M19.012 Primary osteoarthritis, left shoulder * M19.011 Primary osteoarthritis, right shoulder * S46.011A Strain of muscle(s) and tendon(s) of the rotator cuff of right shoulder, initial encounter * S46.012A Strain of muscle(s) and tendon(s) of the rotator cuff of left shoulder, initial encounter Functional Status Description No Information Available Mental Status Description No Information Available Referrals Refer to Reason for Referral Status Appt Date Neeraj Norton MD MRI ARTHROGRAMS SHAYLA SHOULDER WRITTEN AUTH PASSED TO RADHA. Created [facility], [address] [place] [address] [phone]
--- OUTSIDE RECORDS SUMMARY | 2021-10-02 13:21 | CCD | Continuity of Care Document ---
Author Author Pascual STODDARD PA-C Organization Unknown Address [address] [place] [address] Phone [phone] Care Team Providers Care Tavern Car Attendant Name Role Phone Mike Davis MD AUTM [phone] Quincy Gonzalez DO AUTM [phone] Problems Active Problems Provider Date Essential hypertension [...] H/L Range Note Laboratory test finding 07/02/2021 [facility] [address] [place] [address] (315)- - Blood Urea Nitrogen 14 mg/dL Normal 7-18 Creatinine With GFR 07/02/2021 [facility] [address] [place] [address] (315)- - Creatinine For GFR 1.10 mg/dL Normal 0.70-1.30 Glomerular Filtration Rate > 60.0 Normal >56 1 1 Units are mL/min/1.73 m2 Chronic Kidney Disease Staging per NKF: Stage I & II GFR >=60 Normal to Mildly Decreased Stage III GFR 30-59 Moderately Decreased Stage IV GFR 15-29 Severely Decreased Stage V GFR <15 Very Little GFR Left ESRD GFR <15 on SHOOTER HELPER Procedures Date Code Description Status 09/14/2021 98663 Office/Outpatient Established Hi gh MDM 40-54 Min Completed 07/25/2021 28647 Office/Outpatient Established Mo d MDM 30-39 Min Completed 05/24/2021 42607 Office/Outpatient Established Mo d MDM 30-39 Min Completed 05/17/2021 45508 Office/Outpatient Established Mo d MDM 30-39 Min Completed 04/27/2021 63433 Office/Outpatient Established Mo d MDM 30-39 Min Completed Medical Devices Description No Information Available Encounters Type Date Location Provider Dx Diagnosis Office Visit 09/14/2021 8:30a Mayda Stoddard PA-C S43.431 A Superior glenoid labrum lesion of right shoulder, init S46.011A Strain of musc/tend the rota tor cuff of right shoulder, init S43.432A Superior glenoid labrum lesi on of left shoulder, init encntr S46.012A Strain of musc/tend the rota tor cuff of left shoulder, init M19.012 Primary osteoarthritis, left shoulder M19.011 Primary osteoarthritis, righ t shoulder G56.01 Carpal tunnel syndrome, righ t upper limb M48.02 Spinal stenosis, cervical re gion Office Visit 07/25/2021 10:15a [place] [facility] P.[facility]. M47.22 Other spondylosis with radiculopathy, cervical region M25.511 Pain in right shoulder M25.512 Pain in left shoulder G56.01 Carpal tunnel syndrome, righ t upper limb Office Visit 05/24/2021 10:45a Mayda Norton MD G56.01 Carpal tunnel syndrome, right upper limb M47.22 Other spondylosis with radic ulopathy, cervical region M25.511 Pain in right shoulder M75.81 Other shoulder lesions, righ t shoulder Office Visit 05/17/2021 8:45a Mayda Stoddard PA-C G56.01 Carpal tunnel syndrome, right upper limb M25.511 Pain in right shoulder M25.512 Pain in left shoulder Office Visit 04/27/2021 11:00a [place] [facility] P.A. M47.22 Other spondylosis with radiculopathy, [...] rum lesion of right shoulder, initial encounter Tonya Farrell. [facility] 09/14/2021 S46.011A Strain of muscle(s) and tendon(s) of the rotator cuff of right shoulder, initial encounter Tonya L. Fran [facility] 09/14/2021 S43.432A Superior glenoid lab rum lesion of left shoulder, initial encounter Tonya L. Fran [facility] 09/14/2021 S46.012A Strain of muscle(s) and tendon(s) of the rotator cuff of left shoulder, initial encounter Tonya L. Fran [facility] 09/14/2021 M19.012 Primary osteoarthritis, left ana meliton Castaneda L. Fran [facility] 09/14/2021 M19.011 Primary osteoarthritis, right sh oulder Tonya L. Fran [facility] 09/14/2021 G56.01 Carpal tunnel syndrome, right up per limb Tonya L. Fran [facility] 09/14/2021 M48.02 Spinal stenosis, cervical region Tonya L. Fran [facility] 07/25/2021 M47.22 Other spondylosis with radiculop athy, cervical region Oh Win, P.A. 07/25/2021 M25.511 Pain in right shoulder Oh Win, P.A. 07/25/2021 M25.512 Pain in left shoulder Oh Win, P.A. 07/25/2021 G56.01 Carpal tunnel syndrome, right up per limb Jacki WingAAmina 05/24/2021 G56.01 Carpal tunnel syndrome, right up per limb Neeraj Norton MD 05/24/2021 M47.22 Other spondylosis with radiculop athy, cervical region Neeraj Norton MD 05/24/2021 M25.511 Pain in right shoulder Neeraj Norton MD 05/24/2021 M75.81 Other shoulder lesions, right sh oulder Neeraj Norton MD 05/17/2021 G56.01 Carpal tunnel syndrome, right up per limb Tonya Stoddard PA-C 05/17/2021 M25.511 Pain in right shoulder Tonya Stoddard PA-C 05/17/2021 M25.512 Pain in left shoulder Tonya L. Tom joe PA-C 04/27/2021 M47.22 Other spondylosis with radiculop athy, cervical region Oh Win P.A. 04/27/2021 M50.320 Other cervical disc degeneration, mid-cervical region, unspecified level Jacki WingAAmina 04/27/2021 M48.02 Spinal stenosis, cervical region Oh Win, P.A. 04/27/2021 G56.01 Carpal tunnel syndrome, right up per limb Oh Win P.A. 04/27/2021 M79.12 Myalgia of auxiliary muscles, he ad and neck Oh Win P.A. 04/27/2021 M47.24 Other spondylosis with radiculop athy, thoracic region Oh Win P.A. 04/27/2021 M51.34 Other intervertebral disc degene ration, thoracic region Oh Win P.A. Plan of Treatment 09/14/2021 - Tonya [...] spine MRI with BLB per [facility] * S46.011A Strain of muscle(s) and tendon(s) of the rotator cuff of right shoulder, initial encounter * S43.432A Superior glenoid labrum lesion of left shoulder, initial encounter * S46.012A Strain of muscle(s) and tendon(s) of the rotator cuff of left shoulder, initial encounter * M19.012 Primary osteoarthritis, left shoulder * M19.011 Primary osteoarthritis, right shoulder * G56.01 Carpal tunnel syndrome, right upper limb * M48.02 Spinal stenosis, cervical region Functional Status Description No Information Available Mental Status Description No Information Available Referrals Refer to Dr Reason for Referral Status Appt Date Neeraj Norton MD MRI ARTHROGRAMS SHAYLA SHOULDER WRITTEN AUTH PASSED TO RADHA. Created [address] [place] [address], [address] [place] [id number] [phone]
--- OUTSIDE RECORDS SUMMARY | 2021-10-02 13:22 | CCD | Continuity of Care Document ---
Author Author Pascual STODDARD PA-C Organization Unknown Address [address] [place] [address] Phone [phone] Care Team Providers Care Canvas Goods Maker Name Role Phone Mike Davis MD AUTM [phone] Quincy Gonzalez DO AUTM [phone] Problems Active Problems Provider Date Essential hypertension [...] SIG Qnty Indications Ordering Provide r Date Medrol 4mg Tablets dose flower, take as directed on sheet 1tabs G56.01 Neeraj Norton MD 05/17/2021 Lyrica 25mg Capsules 1 by mouth at bedtime for one week, 2 by mouth for one week, then 3x a day. (weaning off gabapentin as directed) 60caps M50.320 Rashad Stoddard MD 04/27/2021 Gabapentin 800mg Tablets take one tablet by mouth three times a day (wc) 90tabs M47.22 Foreign Farley MD 12/19/2020 Duloxetine HCL 20mg Caps DR Part 2 by mouth every morning (WC) 60caps Foreign Farley MD 05/2020 Tizanidine HCL 4mg Tablets 1/2 to 1 by mouth three times a day as needed for spasm (wc) 90tabs M47.22 Rashad Stoddard MD 01/06/2020 Diclofenac Sodium 1% Gel apply [...] H/L Range Note Laboratory test finding 07/02/2021 [facility] [address] [place] [address] (315)- - Blood Urea Nitrogen 14 mg/dL Normal 7-18 Creatinine With GFR 07/02/2021 [facility] [address] [place] [address] (315)- - Creatinine For GFR 1.10 mg/dL Normal 0.70-1.30 Glomerular Filtration Rate > 60.0 Normal >56 1 1 Units are mL/min/1.73 m2 Chronic Kidney Disease Staging per NKF: Stage I & II GFR >=60 Normal to Mildly Decreased Stage III GFR 30-59 Moderately Decreased Stage IV GFR 15-29 Severely Decreased Stage V GFR <15 Very Little GFR Left ESRD GFR <15 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 PROGRAM 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 Procedures Date Code Description Status 05/24/2021 15857 Office/Outpatient Established Mo d MDM 30-39 Min Completed 05/17/2021 67112 Office/Outpatient Established Mo d MDM 30-39 Min Completed 04/27/2021 09225 Office/Outpatient Established Mo d MDM 30-39 Min Completed 02/09/2021 11163 Office/Outpatient Established Mo d MDM 30-39 Min Completed 01/16/2021 48321 Office/Outpatient Established Mo d MDM 30-39 Min Completed 01/12/2021 35231 Office/Outpatient Established Mo d MDM 30-39 Min Completed 01/12/2021 96244 X-Ray Shoulder Complete Complete d 01/12/2021 98526 X-Ray Shoulder Complete Complete d 01/12/2021 22058 Inject/Drain Joint/Bursa Major C ompleted 01/12/2021 20947 Inject/Drain Joint/Bursa Major C ompleted Medical Devices Description No Information Available Encounters Type Date Location Provider Dx Diagnosis Office Visit 05/24/2021 10:45a [place] Norton MD G56.01 Carpal tunnel syndrome, right upper limb M47.22 Other spondylosis with radic ulopathy, cervical region M25.511 Pain in right shoulder M75.81 Other shoulder lesions, righ t shoulder Office Visit 05/17/2021 8:45a [place] Stoddard PA-C G56.01 Carpal tunnel syndrome, right upper limb M25.511 Pain in right shoulder M25.512 Pain in left shoulder Office Visit 04/27/2021 11:00a [place] Win, P.A. M47.22 Other spondylosis with radiculopathy, cervical region M50.320 Other cerv disc degeneration , mid-cervical rgn, unsp level M48.02 Spinal stenosis, cervical re gion G56.01 Carpal tunnel syndrome, righ t upper limb M79.12 Myalgia of auxiliary muscles , head and neck M47.24 Other spondylosis with radic ulopathy, thoracic region M51.34 Other intervertebral disc de generation, thoracic region Office Visit 02/09/2021 9:30a Mayda Stoddard PA-C M25.512 Pain in left shoulder M25.511 Pain in right shoulder Office Visit 01/16/2021 11:00[place] M47.22 Other spondylosis with radiculopathy, cervical region M50.320 Other cerv disc degeneration , mid-cervical rgn, unsp level M48.02 Spinal stenosis, cervical re gion G56.01 Carpal tunnel syndrome, righ t upper limb M79.12 Myalgia of auxiliary muscles , head and neck M47.24 Other spondylosis with radic ulopathy, thoracic region M51.34 Other intervertebral disc de generation, thoracic region Office Visit 01/12/2021 10:45a [place] Tonya Stoddard PA-C M25.511 Pain in right shoulder M25.512 Pain in left shoulder Assessments Date Code Description Provider 05/24/2021 G56.01 Carpal tunnel syndrome, right up [...] Pain in left shoulder Tonya L. Tom JJ joe 04/27/2021 M47.22 Other spondylosis with radiculop athy, cervical region Jacki WingAAmina 04/27/2021 M50.320 Other cervical disc degeneration, mid-cervical region, unspecified level Oh Win, P.A. 04/27/2021 M48.02 Spinal stenosis, cervical region Luis Wing.AAmina 04/27/2021 G56.01 Carpal tunnel syndrome, right up per limb Luis Wing.A. 04/27/2021 M79.12 Myalgia of auxiliary muscles, he ad and neck Oh Win P.A. 04/27/2021 M47.24 Other spondylosis with radiculop athy, thoracic region Luis Wing.A. 04/27/2021 M51.34 Other intervertebral disc degene ration, thoracic region Marcia Wing 02/09/2021 M25.512 Pain in left shoulder Tonya L. F JJ joe 02/09/2021 M25.511 Pain in right shoulder Tonya L. JJ Stoddard 01/16/2021 M47.22 Other spondylosis with radiculop athy, cervical region Sean M NATANAEL Hensley 01/16/2021 M50.320 Other cervical disc degeneration, mid-cervical region, unspecified level Seanshaun CamposNATANAEL andrews 01/16/2021 M48.02 Spinal stenosis, cervical region Seanshaun CamposNATANAEL andrews 01/16/2021 G56.01 Carpal tunnel syndrome, right up per limb Seanshaun CamposNATANAEL andrews 01/16/2021 M79.12 Myalgia of auxiliary muscles, he ad and neck Sean M NATANAEL Hensley 01/16/2021 M47.24 Other spondylosis with radiculop athy, thoracic region Sean M NATANAEL Hensley 01/16/2021 M51.34 Other intervertebral disc degene ration, thoracic region Sean M NATANAEL Hensley 01/12/2021 M25.511 Pain in right shoulder Tonya L. JJ Stoddard 01/12/2021 M25.512 Pain in left shoulder Tonya L. F JJ joe Plan of Treatment Future Appointment(s):* 07/25/2021 10:15 am - Oh Win, P.AAmina at [place] 05/24/2021 - Neeraj Norton MD* G56.01 Carpal tunnel syndrome, right upper limb * M47.22 Other spondylosis with radiculopathy, cervical region* Follow up:* f/u with [facility] for Eval to r/o RSD * M25.511 Pain in right shoulder * M75.81 Other shoulder lesions, right shoulder Functional Status Description No Information Available Mental Status Description No Information Available Referrals Description No Information Available
--- OUTSIDE RECORDS SUMMARY | 2021-10-02 13:22 | CCD ---
Author Author [facility] Organization [facility] Address Unknown Phone Unavailable Support Name Relationship Address Phone DISABLED Next Of Kin Unknown Unavailable ANVIK Next Of Kin [phone] [address] [employer]VI[employer] Next Of Kin [phone] [address] [employer] Next Of Kin [address] [place] [address] FERMIN MARIANO Next Of Kin [address] [place] [address] [employer] Next Of Kin [address] [place] [id number] FLAQUITO MARIANO Next Of Kin [address] [address] RIAZ GRANGER Next Of Kin [address] [place] [address] [employer]* Next Of Kin [address] [place] [id number] CHRIS DURON Next Of Kin [address] [place] [address] [facility] Next Of Kin [address] [place] [address] [employer] [place] [address] [employer] [employer] Next Of Kin [phone] [address] [place] [employer] Next Of Kin [address] [place] [address] [employer] Next Of Kin 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 Name Role Phone Fish, [facility], PA-C Unavailable Unavailabl e Fish, [facility], PA-C Unavailable Unavailabl e Fish, [facility], PA-C Unavailable Unavailabl e Fish, [facility], PA-C Unavailable Unavailabl e Fish, [facility], PA-C Unavailable Unavailabl e Fish, [facility], PA-C Unavailable Unavailabl e Fish, [facility], PA-C Unavailable Unavailabl e Fish, [facility], PA-C Unavailable Unavailabl e Fish, [facility], PA-C Unavailable Unavailabl e Fish, [facility], PA-C Unavailable Unavailabl e Fish, [facility], PA-C Unavailable Unavailabl e Fish, [facility], PA-C Unavailable Unavailabl e Fish, [facility], PA-C Unavailable Unavailabl e Fish, [facility], PA-C Unavailable Unavailabl e Fish, [facility], PA-C Unavailable Unavailabl e Fish, [facility], PA-C Unavailable Unavailabl e Fish, [facility], PA-C Unavailable Unavailabl e Fish, [facility], PA-C Unavailable Unavailabl e Fish, [facility], PA-C Unavailable Unavailabl e Fish, [facility], PA-C Unavailable Unavailabl e Fish, [facility], PA-C Unavailable Unavailabl e Fish, [facility], PA-C Unavailable Unavailabl e Fish, [facility], PA-C Unavailable Unavailabl e Fish, [facility], PA-C Unavailable Unavailabl e Fish, [facility], PA-C Unavailable Unavailabl e Fish, [facility], PA-C Unavailable Unavailabl e Fish, Carie Castaneda [facility]AS, PA-C Unavailable Unavailabl e Fish, Carie Castaneda MPAS, PA-C Unavailable Unavailabl e Fish, Carie Castaneda MPAS, PA-C Unavailable Unavailabl e Fish, Carie Castaneda MPAS, PA-C Unavailable Unavailabl e Fish, Carie Castaneda MPAS, PA-C Unavailable Unavailabl e Fish, Carie Castaneda MPAS, PA-C Unavailable Unavailabl e Fish, Carie Castaneda MPAS, PA-C Unavailable Unavailabl e Fish, Carie Castaneda MPAS, PA-C Unavailable Unavailabl e Fish, Carie Castaneda MPAS, PA-C Unavailable Unavailabl e Fish, Carie Castaneda MPAS, PA-C Unavailable Unavailabl e LOUISEHI MD Unavailable Unavailable LOUISE, HI HARO Unavailable Unavailable LOUISE, HI HARO Unavailable Unavailable LOUISE, HI HARO Unavailable Unavailable LOUISE, HI HARO Unavailable Unavailable LOUISE, HI HARO Unavailable Unavailable LOUISE, HI HARO Unavailable Unavailable LOUISE, HI HARO Unavailable Unavailable LOUISE, HI HARO Unavailable Unavailable LOUISE, HI HARO Unavailable Unavailable LOUISE, HI HARO Unavailable Unavailable LOUISE, HI HARO Unavailable Unavailable LOUISE, HI HARO Unavailable Unavailable LOUISE, HI HARO Unavailable Unavailable LOUISE, HI HARO Unavailable Unavailable LOUISE, HI HARO Unavailable Unavailable LOUISE, HI HARO Unavailable Unavailable LOUISE, HI HARO Unavailable Unavailable LOUISE, HI HARO Unavailable Unavailable LOUISE, HI HARO Unavailable Unavailable LOUISE, HI HARO Unavailable Unavailable LOUISE, HI HARO Unavailable Unavailable LOUISE, HI HARO Unavailable Unavailable LOUISE, HI HARO Unavailable Unavailable LOUISE, HI HARO Unavailable Unavailable LOUISE, HI HARO Unavailable Unavailable LOUISE, HI HARO Unavailable Unavailable LOUISE, HI HARO Unavailable Unavailable LOUISE, HI HARO Unavailable Unavailable LOUISE, HI HARO Unavailable Unavailable LOUISE, HI HARO Unavailable Unavailable LOUISE, HI HARO Unavailable Unavailable LOUISE, HI HARO Unavailable Unavailable LOUISE, HI HARO Unavailable Unavailable LOUISE, HI HARO Unavailable Unavailable LOUISE, HI HARO Unavailable Unavailable LOUISE, HI HARO Unavailable Unavailable LOUISE, HI HARO Unavailable Unavailable LOUISE, HI HARO Unavailable Unavailable LOUISE, HI HARO Unavailable Unavailable LOUISE, HI HARO Unavailable Unavailable LOUISE, HI HARO Unavailable Unavailable LOUISE, HI HARO Unavailable Unavailable LOUISE, HI HARO Unavailable Unavailable LOUISE, HI HARO Unavailable Unavailable LOUISE, HI HARO Unavailable Unavailable LOUISE, HI HARO Unavailable Unavailable LOUISE, HI HARO Unavailable Unavailable LOUISE, HI HARO Unavailable Unavailable LOUISE, HI HARO Unavailable Unavailable LOUISE, HI HARO Unavailable Unavailable LOUISE, HI HARO Unavailable Unavailable LOUISE, HI HARO Unavailable Unavailable LOUISE, HI HARO Unavailable Unavailable LOUISE, HI MD Unavailable Unavailable MCELHERAN, FLAQUITO PA Unavailable Unavailable MCELHERAN, FLAQUITO PA Unavailable Unavailable MCELHERAN, FLAQUITO PA Unavailable Unavailable MCELHERAN, FLAQUITO PA Unavailable Unavailable MCELHERAN, FLAQUITO PA Unavailable Unavailable MCELHERAN, FLAQUITO PA Unavailable Unavailable MCELHERAN, FLAQUITO PA Unavailable Unavailable MCELHERAN, FLAQUITO PA Unavailable Unavailable MCELHERAN, FLAQUITO PA Unavailable Unavailable MCELHERAN, FLAQUITO PA Unavailable Unavailable MCELHERAN, FLAQUITO PA Unavailable Unavailable MCELHERAN, FLAQUITO PA Unavailable Unavailable MCELHERAN, FLAQUITO PA Unavailable Unavailable MCELHERAN, FLAQUITO PA Unavailable Unavailable MCELHERAN, FLAQUITO PA Unavailable Unavailable MCELHERAN, FLAQUITO PA Unavailable Unavailable MCELHERAN, FLAQUITO PA Unavailable Unavailable MCELHERAN, FLAQUITO PA Unavailable Unavailable MCELHERAN, FLAQUITO PA Unavailable Unavailable MCELHERAN, FLAQUITO PA Unavailable Unavailable MCELHERAN, FLAQUITO PA Unavailable Unavailable MCELHERAN, FLAQUITO PA Unavailable Unavailable MCELHERAN, FLAQUITO PA Unavailable Unavailable MCELHERAN, FLAQUITO PA Unavailable Unavailable MCELHERAN, FLAQUITO PA Unavailable Unavailable MCELHERAN, FLAQUITO PA Unavailable Unavailable MCELHERAN, FLAQUITO PA Unavailable Unavailable MCELHERAN, FLAQUITO PA Unavailable Unavailable MCELHERAN, FLAQUITO PA Unavailable Unavailable LISET, W ALVARO Unavailable Unavailable LISET, W ALVARO Unavailable Unavailable LISET, W ALVARO Unavailable Unavailable LISET, W ALVARO Unavailable Unavailable LISET, W ALVARO Unavailable Unavailable LISET, W ALVARO Unavailable Unavailable LISET, W ALVARO Unavailable Unavailable LISET, W ALVARO Unavailable Unavailable LISET, W ALVARO Unavailable Unavailable LISET, W ALVARO Unavailable Unavailable LISET, W ALVARO Unavailable Unavailable LISET, W ALVARO Unavailable Unavailable LISET, W ALVARO Unavailable Unavailable LISET, W ALVARO Unavailable Unavailable LISET, W ALVARO Unavailable Unavailable LISET, W ALVARO Unavailable Unavailable LISET, W ALVARO Unavailable Unavailable LISET, W ALVARO Unavailable Unavailable LISET, W ALVARO Unavailable Unavailable LISET, W ALVARO Unavailable Unavailable LISET, W ALVARO Unavailable Unavailable LISET, W ALVARO Unavailable Unavailable LISET, W ALVARO Unavailable Unavailable LISET, W ALVARO Unavailable Unavailable LISET, W ALVARO Unavailable Unavailable LISET, W ALVARO Unavailable Unavailable LISET, W ALVARO Unavailable Unavailable LISET, W ALVARO Unavailable Unavailable LISET, W ALVARO Unavailable Unavailable LISET, W ALVARO Unavailable Unavailable LISET, W ALVARO Unavailable Unavailable LISET, W ALVARO Unavailable Unavailable LISET, W ALVARO Unavailable Unavailable LISET, W ALVARO Unavailable Unavailable LISET, W ALVARO Unavailable Unavailable LISET, W ALVARO Unavailable Unavailable LISET, W ALVARO Unavailable Unavailable LISET, W ALVARO Unavailable Unavailable LISET, W ALVARO Unavailable Unavailable Norton, Bud Pickard MD Unavailable Unavailable Norton, Bud Pickard MD Unavailable Unavailable Norton, Bud Pickard MD Unavailable Unavailable Norton, Bud Pickard MD Unavailable Unavailable Norton, Bud Pickard MD Unavailable Unavailable Norton, Bud Pickard MD Unavailable Unavailable Norton, Bud Pickard MD Unavailable Unavailable Norton, Bud Pickard MD Unavailable Unavailable Norton, Bud Pickard MD Unavailable Unavailable Norton, Bud Pickard MD Unavailable Unavailable Norton, Bud Pickard MD Unavailable Unavailable Norton, Bud Pickard MD Unavailable Unavailable Nortno, Bud Pickard MD Unavailable Unavailable Norton, Bud Pickard MD Unavailable Unavailable Norton, Bud Pickard MD Unavailable Unavailable Norton, Bud Pickard MD Unavailable Unavailable Norton, Bud Pickard MD Unavailable Unavailable Norton, Bud Pickard MD Unavailable Unavailable Norton, Bud Pickard MD Unavailable Unavailable Norton, Bud Pickard MD Unavailable Unavailable Norton, Bud Pickard MD Unavailable Unavailable Norton, Bud Pickard MD Unavailable Unavailable Norton, Bud Pickard MD Unavailable Unavailable Norton, Bud Pickard MD Unavailable Unavailable Norton, Bud Pickard MD Unavailable Unavailable Norton, Bud Pickard MD Unavailable Unavailable Norton, Bud Pickard MD Unavailable Unavailable Norton, Bud Pickard MD Unavailable Unavailable Norton, Bud Pickard MD Unavailable Unavailable Norton, Bud Pickard MD Unavailable Unavailable Norton, Bud Pickard MD Unavailable Unavailable Norton, Bud Pickard MD Unavailable Unavailable Norton, Bud Pickard MD Unavailable Unavailable Norton, Bud Pickard MD Unavailable Unavailable Norton, Bud Pickard MD Unavailable Unavailable Norton, Bud Pickard MD Unavailable Unavailable Norton, Bud Pickard MD Unavailable Unavailable Norton, Bud Pickard MD Unavailable Unavailable Norton, Bud Pickard MD Unavailable Unavailable Norton, Bud Pickard MD Unavailable Unavailable Norton, Bud Pickard MD Unavailable Unavailable Norton, Bud Pickard MD Unavailable Unavailable Norton, Bud Pickard MD Unavailable Unavailable Norton, Bud Pickard MD Unavailable Unavailable Norton, Bud Pickard MD Unavailable Unavailable Norton, Bud Pickard MD Unavailable Unavailable Norton, Bud Pickard MD Unavailable Unavailable Norton, Bud Pickard MD Unavailable Unavailable Norton, Bud Pickard MD Unavailable Unavailable Norton, Bud Pickard MD Unavailable Unavailable Murtaza HEATON PA Unavailable Unavailable SUDARSHAN, Murtaza ROJAS PA Unavailable Unavailable SUDARSHAN, M SEAN PA Unavailable Unavailable SUDARSHAN, M SEAN PA Unavailable Unavailable SUDARSHAN, M SEAN PA Unavailable Unavailable SUDARSHAN, M SEAN PA Unavailable Unavailable SUDARSHAN, M SEAN PA Unavailable Unavailable SUDARSHAN, M SEAN PA Unavailable Unavailable SUDARSHAN, M SEAN PA Unavailable Unavailable SUDARSHAN, M SEAN PA Unavailable Unavailable SUDARSHAN, M SEAN PA Unavailable Unavailable SUDARSHAN, M SEAN PA Unavailable Unavailable SUDARSHAN, M SEAN PA Unavailable Unavailable SUDARSHAN, M SEAN PA Unavailable Unavailable SUDARSHAN, M SEAN PA Unavailable Unavailable SUDARSHAN, M SEAN PA Unavailable Unavailable SUDARSHAN, M SEAN PA Unavailable Unavailable SUDARSHAN, M SEAN PA Unavailable Unavailable SUDARSHAN, M SEAN PA Unavailable Unavailable SUDARSHAN, M SEAN PA Unavailable Unavailable SUDARSHAN, M SEAN PA Unavailable Unavailable SUDARSHAN, M SEAN PA Unavailable Unavailable SUDARSHAN, M SEAN PA Unavailable Unavailable SUDARSHAN, M SEAN PA Unavailable Unavailable Re-disclosure Warning The records that you are about to access may contain information from federally-assisted alcohol or drug abuse programs. If such information is present, then the following federally mandated warning applies: This information has been disclosed to you from records protected by federal confidentiality rules (42 CFR part 2). The federal rules prohibit you from making any further disclosure of this information unless further disclosure is expressly permitted by the written consent of the person to whom it pertains or as otherwise permitted by 42 CFR part 2. A general authorization for the release of medical or other information is NOT sufficient for this purpose. The Federal rules restrict any use of the information to criminally investigate or prosecute any alcohol or drug abuse patient.The records that you are about to access may contain highly sensitive health information, the redisclosure of which is protected by Article 27-F of the [facility] Public Health law. If you continue you may have access to information: Regarding HIV / AIDS; Provided by facilities licensed or operated by the [facility] Office of Mental Health; or Provided by the [facility] Office for People With Developmental Disabilities. If such information is present, then the following [facility] mandated warning applies: This information has been disclosed to you from confidential records which are protected by state law. State law prohibits you from making any further disclosure of this information without the specific written consent of the person to whom it pertains, or as otherwise permitted by law. Any unauthorized further disclosure in violation of state law may result in a fine or long-term sentence or both. A general authorization for the release of medical or other information is NOT sufficient authorization for further disc losure. Encounters Encounter Providers Location Date Indications Data Source(s ) Outpatient Attender: Tonya WINSTON PA-C Physical Therapy 09/14/2021 08:30:00 AM EDT [facility] ([facility]) Outpatient Attender: HI Aviles: ALVARO [email or web address] 08/17/2021 12:00:00 AM EDT - 08/17/2021 10:40:48 AM EDT [facility] Outpatient Attender: FLAQUITO SANTOYO Physical Therapy 07/25/2021 10:15:00 AM EDT [facility] ([facility]) [place] [address] [place] [address] 06/08/2021 12:00:00 AM EDT [facility] ([facility]) Unknown [address] [place] [address] 06/07/2021 12:00:00 AM EDT [facility]1 ([facility]) Outpatient Attender: HI Aviles: ALVARO HERNANDEZ-[email or web address].[email or web address] 05/25/2021 12:00:00 AM EDT - 05/25/2021 12:09:06 PM EDT [facility] Outpatient Attender: Neeraj Norton MD Physical Therapy 05/24/2021 1 0:45:00 AM EDT [facility] ([facility]) Outpatient Attender: Tonya WINSTON PA-C Physical Therapy 05/17/2021 08:45:00 AM EDT [facility] ([facility]) Out[place] [address] [place] [address] 05/08/2021 12:00:00 AM EDT [facility]1 ([facility]) Outpatient Attender: FLAQUITO SANTOYO Physical Therapy 04/27/2021 11:00:00 AM EDT [facility] ([facility]) [place] [address] [place] [address] 03/21/2021 12:00:00 AM EDT [facility] ([facility]) Unknown [address] [place] [address] 02/22/2021 12:00:00 AM EDT [facility]1 ([facility]) Outpatient Attender: Tonya WINSTON PA-C Physical Therapy 02/09/2021 08:30:00 AM EST [facility] ([facility]) Outpatient Attender: HI GIL MD [email or web address] 12:00:00 AM EST - 01/24/2021 12:02:55 PM EST [facility] Outpatient [address] [place] [address] 01/23/2021 12:00:00 AM EST [facility]1 ([facility]) Outpatient Attender: SEAN SANTOYO Physical Therapy 01/01 10:00:00 AM EST [facility] ([facility]) Outpatient Attender: Tonya WINSTON PA-C Physical Therapy 01/12/2021 09:45:00 AM EST [facility] ([facility]) Outpatient Attender: SEAN SANTOYO Physical Therapy 12/01 09:00:00 AM EST [facility] ([facility]) OFFICE OUTPATIENT VISIT 15 MINUTES Attender: SEAN SANTOYO Ph ysical Therapy 11/10/2020 09:30:00 AM EST [facility] ([facility]) OFFICE OUTPATIENT VISIT 15 MINUTES Attender: SEAN SANTOYO Ph ysical Therapy 10/06/2020 09:15:00 AM EST [facility] ([facility]) Postop visit [address] [place] [address] 10/05/2020 12:00:00 AM EST [facility] ([facility]) Unknown [address] [place] [address] 10/02/2020 12:00:00 AM EST [facility] ([facility]) Unknown [address] [place] [address] 09/29/2020 12:00:00 AM EDT [facility] ([facility]) Unknown [address] [place] [address] 08/31/2020 12:00:00 AM EDT [facility] ([facility]) Postop [place] [address] [place] [address] 08/30/2020 12:00:00 AM EDT eCW1 ([facility]) OFFICE OUTPATIENT VISIT 15 MINUTES Attender: SEAN SANTOYO Ph ysical Therapy 08/18/2020 02:30:00 PM EDT [facility] ([facility]) Outpatient Attender: HI GIL MDReferrer: HI HERNANDEZ-SJP 08/04/2020 07:52:27 AM EDT [facility] Outpatient Referrer: HI CATHERINE-SJP.PAMELA 0 12:00:00 AM EDT - 08/13/2020 06:55:50 AM EDT [facility] Outpatient Attender: HI CATHERINE-[email or web address].[email or web address] 0 12:00:00 AM EDT - 07/27/2020 11:24:01 AM EDT [facility] Immunizations Vaccine Date Status Description Data Source(s) PNEUMOCOCCAL 23-NITA P-SAC VAC 08/31/2021 12:00:00 AM EDT completed [facility] COVID-19 VACCINE Moderna 03/27/2021 12:00:00 AM EDT completed [facility] Vaccine Series Complete: YESThis Data wa s Submitted to [facility]. COVID-19 VACCINE Moderna 02/23/2021 12:00:00 AM EDT completed [facility] Vaccine Series Complete: NOThis Data was Submitted to [facility]. COVID-19 VACCINE, [id number], LNP-S (MODERNA)/PF 02/23/2021 1 2:00:00 AM EDT completed [facility] Medications Medication Brand Name Start Date Product Form Dose Route Admi nistrative Instructions Pharmacy Instructions Status Indications Reaction Description Data Source(s) Diazepam 5 MG Oral Tablet [Valium] Valium 09/14/2021 12:00:00 AM EDT active [facility] ([facility]) Methylprednisolone 4 MG Oral Tablet [Medrol] Medrol 12:00:00 AM EDT active [facility] ( [facility]) 25 mg 09/14/2021 12:00:00 AM EDT capsule 60 TAKE ONE CAPSULE BY MOUTH THREE TIMES A DAY , MAXIMUM DAILY DOSE = 3 CAPSULES TAKE ONE CAPSULE BY MOUTH THREE TIMES A DAY , MAXIMUM DAILY DOSE = 3 CAPSULES SOLD: 09/17/2021 [facility] 4 mg 09/14/2021 12:00:00 AM EDT tablets,dose pack 21 TAKE BY MOUTH DIRECTED ON SHEET TAKE BY MOUTH DIRECTED ON SHEET SOLD: 09/17/2021 [facility] 60 mcg (15 mcg x 4)/0.5 mL 08/31/2021 12:00:00 AM EDT suspen migel 0 INJECT PER STANDING ORDER INJECT PER STANDING ORDER SOLD: 08/31/2021 [facility] 5 mg 08/17/2021 12:00:00 AM EDT tablet 180 TAKE ONE TABLET BY MOUTH TWICE A DAY TAKE ONE TABLET BY MOUTH TWICE A DAY SOLD: 08/20/2021 [facility] apixaban 5 MG Oral Tablet [Eliquis] Eliquis 5 MG TABS tablet Eliquis 5 MG TABS tablet 08/17/2021 12:00:00 AM EDT 5 mg Oral active Atri al fibrillation Take 1 tablet (5 mg total) by mouth 2 (two) times a day [facility] Atrial fibrillation 5 mg 08/02/2021 12:00:00 AM EDT tablet 2 TAKE 1 TABLET BY MOUTH 1/2 HOUR PRIOR TO MRI, MAY REPEAT IN 30 MINUTES IF NO EFFECT. DO NOT DRIVE TO OR FROM MRI, MAX OF 2 PER DAY TAKE 1 TABLET BY MOUTH 1/2 HOUR PRIOR TO MRI, MAY REPEAT IN 30 MINUTES IF NO EFFECT. DO NOT DRIVE TO OR FROM MRI, MAX OF 2 PER DAY SOLD: 08/05/2021 [facility] Diazepam 5 MG Oral Tablet [Valium] Valium 08/02/2021 12:00:00 AM EDT active [facility] ([facility]) 5 mg 05/30/2021 12:00:00 AM EDT tablet 180 TAKE ONE TABLET BY MOUTH TWICE A DAY DIRECTED TAKE ONE TABLET BY MOUTH TWICE A DAY DIRECTED SOLD: 05/30/2021 [facility] Lisinopril 2.5 MG Oral Tablet lisinopril (PRINIVIL,ZES TRIL) 2.5 MG tablet lisinopril (PRINIVIL,ZESTRIL) 2.5 MG tablet 05/25/2021 12:00:00 AM EDT 2.5 mg Oral active Primary cardiomyopathy Ta ke 1 tablet (2.5 mg total) by mouth daily [facility] Primary cardiomyopathy Methylprednisolone 4 MG Oral Tablet methylPREDNISolone (MEDROL) 4 MG tablet methylPREDNISolone (MEDROL) 4 MG tablet 05/19/2021 12:00:00 AM EDT aborted DOSE PACK TAKE DIRECTED ON S HEET [facility] 4 mg 05/17/2021 12:00:00 AM EDT tablet 21 DOSE PACK, TAKE DIRECTED ON SHEET DOSE PACK, TAKE DIRECTED ON SHEET SOLD: 05/19/2021 [facility] Methylprednisolone 4 MG Oral Tablet [Medrol] Medrol 12:00:00 AM EDT active [facility] ( [facility]) tizanidine 4 MG Oral Tablet TIZANIDINE HCL 05/03/2021 12:00:00 AM EDT tablet 90 TAKE ONE-HALF TO ONE TABLET THREE TIMES A DAY NEEDE D FOR SPASM TAKE ONE- HALF TO ONE TABLET THREE TIMES A DAY NEEDED FOR SPASM SOLD: 05/05/2021 [facility] 25 mg 04/27/2021 12:00:00 AM EDT capsule 60 TAKE ONE CAPSULE BY MOUTH EVERY DAY AT BEDTIME FOR ONE WEEK, THEN TWO CAPSULES DAILY FOR ONE WEEK, THEN TAKE THREE CAPSULES THREE TIMES A DAY MAXIMUM DAILY DOSE = 3 CAPSULES TAKE ONE CAPSULE BY MOUTH EVERY DAY AT BEDTIME FOR ONE WEEK, THEN TWO CAPSULES DAILY FOR ONE WEEK, THEN TAKE THREE CAPSULES THREE TIMES A DAY MAXIMUM DAILY DOSE = 3 CAPSULES SOLD: 08/17/2021 [facility] pregabalin 25 MG Oral Capsule [Lyrica] Lyrica 04/27/2021 12:00:00 AM EDT ORAL active [facility] ([facility]) pregabalin 25 MG Oral Capsule pregabalin (LYRICA) 25 M G capsule pregabalin (LYRICA) 25 MG capsule 04/27/2021 12:00:00 AM EDT 25 mg Oral active Take 25 mg by mouth 2 (two) times a day [facility] 25 mg 04/27/2021 12:00:00 AM EDT capsule 60 TAKE ONE CAPSULE BY MOUTH EVERY DAY AT BEDTIME FOR ONE WEEK, THEN TWO CAPSULES DAILY FOR ONE WEEK, THEN TAKE THREE CAPSULES THREE TIMES A DAY MAXIMUM DAILY DOSE = 3 CAPSULES TAKE ONE CAPSULE BY MOUTH EVERY DAY AT BEDTIME FOR ONE WEEK, THEN TWO CAPSULES DAILY FOR ONE WEEK, THEN TAKE THREE CAPSULES THREE TIMES A DAY MAXIMUM DAILY DOSE = 3 CAPSULES SOLD: 05/01/2021 [facility] Fenofibrate 134 MG Oral Capsule FENOFIBRATE,MICRONIZED 03/22 12:00:00 AM EDT capsule 90 TAKE ONE CAPSULE BY MOUTH WITH A MEAL ONCE A DAY FOR HIGH TIGLYCERIDES TAKE ONE CAPSULE BY MOUTH WITH A MEAL ON CE A DAY FOR HIGH TIGLYCERIDES SOLD: 03/23/2021 [facility] Fenofibrate 134 MG Oral Capsule FENOFIBRATE,MICRONIZED 03/22 12:00:00 AM EDT capsule 90 TAKE ONE CAPSULE BY MOUTH WITH A MEAL ONCE A DAY FOR HIGH TIGLYCERIDES TAKE ONE CAPSULE BY MOUTH WITH A MEAL ON CE A DAY FOR HIGH TIGLYCERIDES SOLD: 07/25/2021 [facility] 20 mg 03/22/2021 12:00:00 AM EDT tablet 90 TAKE ONE TABLET BY MOUTH ONCE A DAY TAKE ONE TABLET BY MOUTH ONCE A DAY SOLD: 07/24/2021 [facility] atorvastatin 40 MG Oral Tablet ATORVASTATIN CALCIUM 03/22/2021 1 2:00:00 AM EDT tablet 90 TAKE ONE TABLET BY MOUTH EVERY D AY TAKE ONE TABLET BY MOUTH EVERY DAY SOLD: 07/24/2021 [facility] 5 mg 03/22/2021 12:00:00 AM EDT tablet 90 TAKE ONE TABLET BY MOUTH ONCE A DAY FOR HEART FAILURE TAKE ONE TABLET BY MOUTH ONCE A DAY FOR HEART FAILURE SOLD: 03/23/2021 [facility] atorvastatin 40 MG Oral Tablet ATORVASTATIN CALCIUM 03/22/2021 1 2:00:00 AM EDT tablet 90 TAKE ONE TABLET BY MOUTH EVERY D AY TAKE ONE TABLET BY MOUTH EVERY DAY SOLD: 03/23/2021 [facility] 200 mg 03/22/2021 12:00:00 AM EDT tablet extended release 24 hr 90 TAKE ONE TABLET BY MOUTH DAILY TAKE ONE TABLET BY MOUTH DAILY SOLD: 07/25/2021 [facility] 200 mg 03/22/2021 12:00:00 AM EDT tablet extended release 24 hr 90 TAKE ONE TABLET BY MOUTH DAILY TAKE ONE TABLET BY MOUTH DAILY SOLD: 03/23/2021 [facility] 20 mg 03/22/2021 12:00:00 AM EDT tablet 90 TAKE ONE TABLET BY MOUTH ONCE A DAY TAKE ONE TABLET BY MOUTH ONCE A DAY SOLD: 03/23/2021 [facility] 0.4 mg 03/10/2021 12:00:00 AM EDT capsule 10 TAKE ONE CAPSULE BY MOUTH EVERY DAY 1/2 HOUR FOLLOWING THE SAME MEAL EACH DAY TAKE ONE CAPSULE BY MOUTH EVERY DAY 1/2 HOUR FOLLOWING THE SAME MEAL EACH DAY SOLD: 03/10/2021 [facility] 5 mg 02/22/2021 12:00:00 AM EDT tablet 60 TAKE ONE TABLET BY MOUTH TWO TIMES A DAY DIRECTED TAKE ONE TABLET BY MOUTH TWO TIMES A DAY DIRECTED S OLD: 03/23/2021 [facility] 5 mg 02/22/2021 12:00:00 AM EDT tablet 60 TAKE ONE TABLET BY MOUTH TWO TIMES A DAY DIRECTED TAKE ONE TABLET BY MOUTH TWO TIMES A DAY DIRECTED S OLD: 04/27/2021 [facility] 5 mg 02/22/2021 12:00:00 AM EDT tablet 60 TAKE ONE TABLET BY MOUTH TWO TIMES A DAY DIRECTED TAKE ONE TABLET BY MOUTH TWO TIMES A DAY DIRECTED S OLD: 02/22/2021 [facility] sildenafil 100 MG Oral Tablet sildenafil (VIAGRA) 100 MG tablet sildenafil (VIAGRA) 100 MG tablet 01/24/2021 12:00:00 AM EST 100 mg Oral aborted Erectile dysfunction, unspecified erectile dysfunction type Take 1 tablet (100 mg total) by mouth daily as needed [facility] Erectile dysfunction, unspecified erecti le dysfunction type 100 mg 01/24/2021 12:00:00 AM EST tablet 10 TAKE ONE TABLET BY MOUTH EVERY DAY NEEDED TAKE ONE TABLET BY MOUTH EVERY DAY NEEDED SOLD: 01/24/2021 [facility] 300 mg 01/23/2021 12:00:00 AM EST tablet 30 TAKE ONE TABLET BY MOUTH EVERY DAY FOR GOUT TAKE ONE TABLET BY MOUTH EVERY DAY FOR GOUT SOLD: 01/24/2021 [facility] 300 mg 01/23/2021 12:00:00 AM EST tablet 30 TAKE ONE TABLET BY MOUTH EVERY DAY FOR GOUT TAKE ONE TABLET BY MOUTH EVERY DAY FOR GOUT SOLD: 07/24/2021 [facility] 300 mg 01/23/2021 12:00:00 AM EST tablet 30 TAKE ONE TABLET BY MOUTH EVERY DAY FOR GOUT TAKE ONE TABLET BY MOUTH EVERY DAY FOR GOUT SOLD: 05/01/2021 [facility] gabapentin 800 MG Oral Tablet GABAPENTIN 01/16/2021 12:00:00 AM EST ta blet 90 TAKE ONE TABLET BY MOUTH THREE TIMES A DAY TAKE ONE TABLET BY MOUTH THREE TIMES A DAY SOLD: 05/01/2021 [facility] gabapentin 800 MG Oral Tablet GABAPENTIN 01/16/2021 12:00:00 AM EST ta blet 90 TAKE ONE TABLET BY MOUTH THREE TIMES A DAY TAKE ONE TABLET BY MOUTH THREE TIMES A DAY SOLD: 01/23/2021 [facility] gabapentin 800 MG Oral Tablet gabapentin (NEURONTIN) 8 00 MG tablet gabapentin (NEURONTIN) 800 MG tablet 01/16/2021 12:00:00 AM EST aborted [facility] gabapentin 800 MG Oral Tablet GABAPENTIN 01/16/2021 12:00:00 AM EST ta blet 90 TAKE ONE TABLET BY MOUTH THREE TIMES A DAY TAKE ONE TABLET BY MOUTH THREE TIMES A DAY SOLD: 03/23/2021 [facility] gabapentin 800 MG Oral Tablet GABAPENTIN 12/21/2020 12:00:00 AM EST ta blet 90 TAKE ONE TABLET BY MOUTH THREE TIMES A DAY * MAXIMUM DAILY DOSE = 3 TAKE ONE TABLET BY MOUTH THREE TIMES A DAY * MAXIMUM DAILY DOSE = 3 SOLD: 12/25/2020 [facility] gabapentin 800 MG Oral Tablet Gabapentin 12/19/2020 12:00:00 AM EST ORAL active [facility] ([facility]) 500 mg 12/15/2020 12:00:00 AM EST capsule 21 TAKE ONE CAPSULE BY MOUTH EVERY 8 HOURS TAKE ONE CAPSULE BY MOUTH EVERY 8 HOURS SOLD: 12/15/2020 [facility] Acetaminophen 325 MG / Hydrocodone James trate 5 MG Oral Tablet HYDROcodone- acetaminophen (NORCO) 5-325 MG per tablet HYDROcodone-acetaminophen (NORCO) 5- 325 MG per tablet 12/15/2020 12:00:00 AM EST aborted TAKE ONE TABLET BY MOUTH EVERY 4 TO 6 HOURS NEEDED FOR PAIN MAXIMUM DAILY DOSE FOUR TABLETS [facility] 5-325 mg 12/15/2020 12:00:00 AM EST tablet 12 TAKE ONE TABLET BY MOUTH EVERY 4 TO 6 HOURS NEEDED FOR PAIN, MAXIMUM DAILY DOSE = FOUR TABLETS TAKE ONE TABLET BY MOUTH EVERY 4 TO 6 HOURS NEEDED FOR PAIN, MAXIMUM DAILY DOSE = FOUR TABLETS SOLD: 12/15/2020 [facility] 300 mg 12/12/2020 12:00:00 AM EST capsule 30 TAKE ONE CAPSULE BY MOUTH THREE TIMES A DAY FOR 10 DAYS TAKE ONE CAPSULE BY MOUTH THREE TIMES A DAY FOR 10 DAYS SOLD: 12/12/2020 [facility] 600 mg 11/21/2020 12:00:00 AM EST tablet 90 TAKE ONE TABLET BY MOUTH THREE TIMES A DAY TAKE ONE TABLET BY MOUTH THREE TIMES A DAY SOLD: 11/21/2020 [facility] gabapentin 600 MG Oral Tablet Gabapentin 11/16/2020 12:00:00 AM EST ORAL completed [facility] ([facility]) 20 mg 11/11/2020 12:00:00 AM EST capsule,delayed release (DR/EC) 60 TAKE TWO CAPSULES BY MOUTH EVERY MORNING TAKE TWO CAPSULES BY MOUTH EVERY MORNING SOLD: 02/16/2021 [facility] 1 % 11/11/2020 12:00:00 AM EST gel 200 APPLY 2 GRAMS TO NECK AND RIGHT SHOULDER THREE TIMES A DAY APPLY 2 GRAMS TO NECK AND RIGHT SHOULDER THREE TIMES A DAY SOLD: 11/16/2020 [facility] 20 mg 11/11/2020 12:00:00 AM EST capsule,delayed release (DR/EC) 60 TAKE TWO CAPSULES BY MOUTH EVERY MORNING TAKE TWO CAPSULES BY MOUTH EVERY MORNING SOLD: 05/01/2021 [facility] duloxetine 20 MG Delayed Release Oral Ca psule DULoxetine (CYMBALTA) 20 MG capsule DULoxetine (CYMBALTA) 20 MG capsule 11/11/2020 12:00:00 AM EST 20 mg Oral aborted Take 20 mg by mouth daily [facility] 20 mg 11/11/2020 12:00:00 AM EST capsule,delayed release (DR/EC) 60 TAKE TWO CAPSULES BY MOUTH EVERY MORNING TAKE TWO CAPSULES BY MOUTH EVERY MORNING SOLD: 03/23/2021 [facility] 20 mg 11/11/2020 12:00:00 AM EST capsule,delayed release (DR/EC) 60 TAKE TWO CAPSULES BY MOUTH EVERY MORNING TAKE TWO CAPSULES BY MOUTH EVERY MORNING SOLD: 11/16/2020 [facility] 5 mg 10/09/2020 12:00:00 AM EST tablet 2 TAKE ONE TABLET BY MOUTH HALF AN HOUR PRIOR TO MRI, MAY REPEAT IN 30 MINUTES IF NO EFFECT. MAXIMUM DAILY DOSE = TWO TABLETS TAKE ONE TABLET BY MOUTH HALF AN HOUR TN IOR TO MRI, MAY REPEAT IN 30 MINUTES IF NO EFFECT. MAXIMUM DAILY DOSE = TWO TABLETS SOLD: 10/20/2020 [facility] Diazepam 5 MG Oral Tablet [Valium] Valium 10/06/2020 12:00:00 AM EST ORAL completed [facility] ([facility] ) duloxetine 20 MG Delayed Release Oral Capsule Duloxetine HCL 10/06/2020 12:00:00 AM EST ORAL active [facility] ([facility]) 0.4 mg 10/05/2020 12:00:00 AM EST capsule 30 TAKE ONE CAPSULE BY MOUTH EVERY DAY TAKE ONE CAPSULE BY MOUTH EVERY DAY SOLD: 11/28/2020 [facility] 0.4 mg 10/05/2020 12:00:00 AM EST capsule 30 TAKE ONE CAPSULE BY MOUTH EVERY DAY TAKE ONE CAPSULE BY MOUTH EVERY DAY SOLD: 10/06/2020 [facility] 200 mg 10/02/2020 12:00:00 AM EST tablet extended release 24 hr 90 TAKE ONE TABLET BY MOUTH EVERY DAY TAKE ONE TABLET BY MOUTH EVERY DAY SOLD: 10/02/2020 [facility] 200 mg 10/02/2020 12:00:00 AM EST tablet extended release 24 hr 90 TAKE ONE TABLET BY MOUTH EVERY DAY TAKE ONE TABLET BY MOUTH EVERY DAY SOLD: 01/05/2021 [facility] 0.4 mg 09/07/2020 12:00:00 AM EDT capsule 20 TAKE ONE CAPSULE BY MOUTH EVERY DAY 30 MINUTES AFTER THE SAME MEAL EACH DAY TAKE ONE CAPSULE BY MOUTH EVERY DAY 30 MINUTES AFTER THE SAME MEAL EACH DAY SOLD: 09/07/2020 [facility] 5-325 mg 09/07/2020 12:00:00 AM EDT tablet 20 TAKE ONE TABLET BY MOUTH EVERY 6 HOURS NEEDED FOR PAIN, MAXIMUM DAILY DOSE = FOUR TABLETS TAKE ONE TABLET BY MOUTH EVERY 6 HOURS NEEDED FOR PAIN, MAXIMUM DAILY DOSE = FOUR TABLETS SOLD: 09/07/2020 [facility] 20 mg 08/25/2020 12:00:00 AM EDT capsule,delayed release (DR/EC) 30 TAKE ONE CAPSULE BY MOUTH EVERY MORNING TAKE ONE CAPSULE BY MOUTH EVERY MORNING SOLD: 09/29/2020 [facility] 20 mg 08/25/2020 12:00:00 AM EDT capsule,delayed release (DR/EC) 30 TAKE ONE CAPSULE BY MOUTH EVERY MORNING TAKE ONE CAPSULE BY MOUTH EVERY MORNING SOLD: 08/30/2020 [facility] 5-325 mg 08/10/2020 12:00:00 AM EDT tablet 20 TAKE ONE TABLET BY MOUTH EVERY 6 HOURS NEEDED FOR PAIN MAXIMUM DAILY DOSE = FOUR TABLETS TAKE ONE TABLET BY MOUTH EVERY 6 HOURS NEEDED FOR PAIN MAXIMUM DAILY DOSE = FOUR TABLETS SOLD: 08/10/2020 [facility] 0.4 mg 08/06/2020 12:00:00 AM EDT capsule 30 TAKE ONE CAPSULE BY MOUTH EVERY DAY TAKE ONE CAPSULE BY MOUTH EVERY DAY SOLD: 08/08/2020 [facility] duloxetine 20 MG Delayed Release Oral Capsule Duloxetine HCL 07/20/2020 12:00:00 AM EDT ORAL completed [facility] ([facility]) 10 mg 07/18/2020 12:00:00 AM EDT tablet 90 TAKE ONE TABLET BY MOUTH ONCE DAILY TAKE ONE TABLET BY MOUTH ONCE DAILY SOLD: 11/16/2020 [facility] apixaban 5 MG Oral Tablet [Eliquis] ELIQUIS 5 MG TABS tablet ELIQUIS 5 MG TABS tablet 07/18/2020 12:00:00 AM EDT 5 mg Oral aborted Take 5 mg by mouth 2 (two) times a day [facility] Lisinopril 10 MG Oral Tablet lisinopril (PRINIVIL,ZEST RIL) 10 MG tablet lisinopril (PRINIVIL,ZESTRIL) 10 MG tablet 07/18/2020 12:00:00 AM EDT 5 mg Oral aborted Take 5 mg by mouth d aily [facility] atorvastatin 40 MG Oral Tablet ATORVASTATIN CALCIUM 07/18/2020 1 2:00:00 AM EDT tablet 90 TAKE ONE TABLET BY MOUTH ONCE DA CHRISTIANO TAKE ONE TABLET BY MOUTH ONCE DAILY SOLD: 11/16/2020 [facility] 5 mg 07/18/2020 12:00:00 AM EDT tablet 180 TAKE ONE TABLET BY MOUTH TWO TIMES A DAY TAKE ONE TABLET BY MOUTH TWO TIMES A DAY SOLD: 11/16/2020 [facility] 20 mg 07/18/2020 12:00:00 AM EDT tablet 90 TAKE ONE TABLET BY MOUTH ONCE DAILY TAKE ONE TABLET BY MOUTH ONCE DAILY SOLD: 11/16/2020 [facility] Fenofibrate 134 MG Oral Capsule FENOFIBRATE,MICRONIZED 07/17 12:00:00 AM EDT capsule 90 TAKE ONE TABLET BY MOUTH ONC E DAILY WITH FOOD TAKE ONE TABLET BY MOUTH ONCE DAILY WITH FOOD SOLD: 11/16/2020 [facility] Tamsulosin hydrochloride 0.4 MG Oral Capsule tamsulosi n (FLOMAX) 0.4 MG CAPS tamsulosin (FLOMAX) 0.4 MG CAPS 07/11/2020 12:00:00 AM EDT 0.4 mg O ral aborted Take 0.4 mg by mouth daily [facility] gabapentin 600 MG Oral Tablet gabapentin (NEURONTIN) 6 00 MG tablet gabapentin (NEURONTIN) 600 MG tablet 06/07/2020 12:00:00 AM EDT 800 mg aborted 800 mg 2 (two) times a day [facility] 4 mg 02/29/2020 12:00:00 AM EDT tablet 90 TAKE 1/2 - 1 TABLET BY MOUTH THREE TIMES A DAY NEEDED FOR SPASM TAKE 1/2 - 1 TABLET BY MOUTH THREE TIMES A DAY NEEDED FOR SPASM SOLD: 09/18/2020 [facility] Acetaminophen 325 MG / Oxycodone Hydroch loride 5 MG Oral Tablet oxyCODONE- acetaminophen (PERCOCET) 5-325 MG per tablet oxyCODONE-acetaminophen (PERCOCET) 5-325 MG per tablet aborted [facility] 24 HR Diltiazem Hydrochloride 180 MG Ext ended Release Oral Capsule diltiazem (CARDIZEM CD) 180 MG 24 hr capsule diltiazem (CARDIZEM CD) 180 MG 24 hr capsule aborted [facility] Colchicine 0.6 MG Oral Capsule Colchicine (MITIGARE) 0 .6 MG CAPS Colchicine (MITIGARE) 0.6 MG CAPS aborted [facility] Diclofenac Sodium 0.01 MG/MG Topical Gel Diclofenac So dium 1 % GEL Diclofenac Sodium 1 % GEL aborted [facility] tramadol hydrochloride 50 MG Oral Tablet traMADol (ULT KIERAN) 50 MG tablet traMADol (ULTRAM) 50 MG tablet aborted [facility] Diazepam 5 MG Oral Tablet diazepam (VALIUM) 5 MG table t diazepam (VALIUM) 5 MG tablet aborted [facility] 24 HR Diltiazem Hydrochloride 180 MG Ext ended Release Oral Capsule diltiazem (TIAZAC) 180 MG 24 hr capsule diltiazem (TIAZAC) 180 MG 24 hr capsule 180 mg Oral aborted Take 180 mg by mouth shady ly [facility] Insurance Providers Payer name Policy type / Coverage type Policy ID Covered democrat ID Covered democrat's relationship to [place] Policy [place] Plan Information [facility] [id number] [facility] [id number] xxxxxxxxx [id number] [facility] MEDICAID [id number] [id number] [facility] [id number] SP [id number] OTHER [employer]EMPLOYER [id number] SP [id number] [facility] [id number] SP [id number] MAGNOLIA [id number] SP [id number] MAGNOLIA INS [id number] SP [id number] [facility] O [id number] O [id number] 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) O [id number] S [id number] [facility] [id number] SP [id number] MAGNOLIA INS [id number] SP [id number] [facility] [id number] SP [id number] [facility] [id number] SP [id number] [facility] [id number] SP [id number] [facility] [id number] SP [id number] [facility] [id number] SP [id number] [facility] O [id number] S [id number] ANVIK [id number] SP [id number] [employer] [id number] SP [id number] [place] [facility] O [id number] S [id number] [employer] SP [employer] O [id number] S [id number] [employer] O [id number] S [id number] [employer] O [id number] S [id number] [employer] [id number] SP [id number] ANSI-Medicaid [id number] ANSI-Medicaid [id number] ANSI-Medicaid [id number] ANSI-Medicaid [id number] ANSI-Medicaid [id number] SELF PAY ONLY UNAVAILABLE UNAV AILABLE MEDICAID [id number] SP [id number] SELF PAY ONLY [id number] SP [id number] [facility] [id number] SP [id number] [facility] [id number] SP [id number] [facility] [id number] SP [id number] [facility] [id number] Problems, Conditions, and Diagnoses Code Display Name Description Problem Type Effective Dates Data Source(s) E66.3 Overweight Overweight Diagnosis 08/17/2021 09:49:41 AM ED T [facility] G47.30 Sleep apnea, unspecified Sleep apnea, unspecified Diag nosis 08/17/2021 09:49:41 AM EDT [facility] E03.9 Hypothyroidism, unspecified Hypothyroidism, unspecifie d Diagnosis 08/17/2021 09:49:41 AM EDT [facility] K21.9 Gastro-esophageal reflux disease without esophagitis Gastro-esophageal reflux disease without Diagnosis 08/17/2021 09:49:41 AM EDT [facility] I10 Essential (primary) hypertension Essential (primary) h ypertension Diagnosis 08/17/2021 09:49:41 AM EDT [facility] M19.90 Unspecified osteoarthritis, unspecified site Unspecified osteoarthritis, unspecified Diagnosis 08/17/2021 09:49:41 AM EDT [facility] I42.8 Other cardiomyopathies Other cardiomyopathies Diagnosi s 08/17/2021 09:49:41 AM EDT [facility] E78.2 Mixed hyperlipidemia Mixed hyperlipidemia Diagnosis 08/17/2021 09:49:41 AM EDT [facility] I48.91 Unspecified atrial fibrillation Unspecified atri al fibrillation Diagnosis 08/17/2021 09:49:41 AM EDT [facility] N52.9 Male erectile dysfunction, unspecified M orestes erectile dysfunction, unspecified Diagnosis 05/25/2021 10:51:44 AM EDT [facility] Z01.818 Encounter for other preprocedural examin ation Encounter for other preprocedural examin Diagnosis 08/04/2020 07:53:03 AM EDT [facility] R06.02 Shortness of breath Shortness of breath Diagnosis 0 08/04/2020 07:53:03 AM EDT [facility] G56.01 [id number] Right carpal tunnel syndrome Problem 05/08/2021 12:00:00 AM EDT eCW1 ([facility]) G47.19 [id number] Excessive daytime sleepiness Problem 05/08/2021 12:00:00 AM EDT eCW1 ([facility]) N52.9 Erectile dysfunction Erectile dysfunction [id number] 01/24/2021 12:00:00 AM EST [facility] N20.0 Kidney stone Kidney stone on right side Problem 0 08/30/2020 12:00:00 AM EDT eCW1 ([facility]) Surgeries/Procedures Procedure Description Date Indications Data Source(s) OFFICE OUTPATIENT VISIT 40 MINUTES 09/14/2021 12:00:00 AM EDT [facility] ([facility] ) OFFICE OUTPATIENT VISIT 25 MINUTES 09/14/2021 12:00:00 AM EDT [facility] ([facility] ) ECG ROUTINE ECG W/LEAST 12 LDS W/I&R <td>POCT AMB EKG</td><td>Routine</td><td>08/17/2021 11:26 AM EDT</td><td> Atrial fibrillation</td><td> </td> 08/17/2021 11:26:00 AM EDT Atrial fibrillation [facility] Atrial fibrillation OFFICE OUTPATIENT VISIT 25 MINUTES 07/25/2021 12:00:00 AM EDT [facility] ([facility] ) OFFICE OUTPATIENT VISIT 25 MINUTES 05/24/2021 12:00:00 AM EDT [facility] ([facility] ) OFFICE OUTPATIENT VISIT 25 MINUTES 05/17/2021 12:00:00 AM EDT [facility] ([facility] ) OFFICE OUTPATIENT VISIT 25 MINUTES 04/27/2021 12:00:00 AM EDT [facility] ([facility] ) OFFICE OUTPATIENT VISIT 25 MINUTES 02/09/2021 12:00:00 AM EST [facility] ([facility] ) OFFICE OUTPATIENT VISIT 25 MINUTES 01/16/2021 12:00:00 AM EST [facility] ([facility] ) ARTHROCENTESIS ASPIR&/INJECTION MAJOR JT/BURSA 021 12:00:00 AM EST [facility] ([facility]) ARTHROCENTESIS ASPIR&/INJECTION MAJOR JT/BURSA 021 12:00:00 AM EST [facility] ([facility]) RADEX SHOULDER COMPLETE MINIMUM 2 VIEWS 01/12/2021 12: 00:00 AM EST [facility] ([facility]) RADEX SHOULDER COMPLETE MINIMUM 2 VIEWS 01/12/2021 12: 00:00 AM EST [facility] ([facility]) OFFICE OUTPATIENT VISIT 25 MINUTES 01/12/2021 12:00:00 AM EST [facility] ([facility]) RADEX SPINE THORACIC 2 VIEWS 12/19/2020 12:00:00 AM ES T [facility] ([facility]) OFFICE OUTPATIENT VISIT 25 MINUTES 12/19/2020 12:00:00 AM EST [facility] ([facility]) NJX ANES&/STRD W/IMG TFRML EDRL CRV/THRC 1 LVL 020 12:00:00 AM EDT [facility] ([facility] ) Epidurography Radiological Supervision & Interpretation 09/18/2020 12:00:00 AM EDT [facility] ([facility]) Moderate Sedation Services; Same Phys Intl 15 Mins; PT >= 5 Years 09/18/2020 12:00:00 AM EDT [facility] ([facility]) Moderate Sedation Services; Same Phys Each Additional 15 Min s 09/18/2020 12:00:00 AM EDT [facility] ([facility]) PROTHROMBIN TIME <td>PROTIME- INR</td><td>Routine</td><td>09/05/2020</td><td></td><td> </td> 09/05/2020 12:00:00 AM EDT [facility] BLOOD COUNT COMPLETE AUTO&AUTO DIFRNTL WBC COUNT <td>C BC AND DIFFERENTIAL</td><td>Routine</td><td>09/05/2020</td><td></td><td> </td> 09/05/2020 12:00:00 AM EDT [facility] PROTHROMBIN TIME <td>POCT INR</td><td>Routine</td><td>09/05/2020</td><td></td><td> </td> 09/05/2020 12:00:00 AM EDT [facility] BASIC METABOLIC PANEL CALCIUM TOTAL <td>BASIC METABOLI C PANEL</td><td>Routine</td><td>09/05/2020</td><td></td><td> </td> 09/05/2020 12:00:00 AM EDT [facility] Results ID Date Data Source [id number] 07/02/2021 12:58:00 PM EDT [facility] ([facility]) Name Value Range Interpretation Code Description Data Lolita rce(s) Supporting Document(s) Glomerular Filtration Rate [facility] <content>Units are mL/min/1.73 m2</content>
<content></content>
<content>Chronic Kidney Disease Staging per NKF:</content>
<content></content>
<content>Stage I & II GFR >=60 Normal to Mildly Decreased</content>
<content>Stage III GFR 30- 59 Moderately Decreased</content>
<content>Stage IV GFR 15-29 Severely Decreased</content>
<content>Stage V GFR <15 Very Little GFR Left</content>
<content>ESRD GFR <15 on WIRE TESTER</content>
<content></content> Creatinine For GFR 1.10 mg/dL 0.70-1.30 [facility] ([facility]) ID Date Data Source [id number] 07/02/2021 12:58:00 PM EDT [facility] ([facility]) Name Value Range Interpretation Code Description Data Lolita rce(s) Supporting Document(s) Urea nitrogen [Mass/volume] in Serum or Plasma 14 mg/dL 7-18 [facility] ([facility]) ID Date Data Source [id number] 11/13/2020 10:14:00 AM EST [facility] ([facility]) Name Value Range Interpretation Code Description Data Lolita rce(s) Supporting Document(s) C reactive protein [Mass/volume] in Serum or Plasma by High sensitivity method Laboratory test result 0.00-0.30 [facility] ([facility]) Erythrocyte sedimentation rate by Westergren method 6 mm/hr 0-20 [facility] ([facility]) ID Date Data Source [id number] 10/25/2020 12:00:00 AM EST [facility] Sean SANTOYO Patient Name: CUATE HERNANDES [facility] Date of : 1970te 2 Date of Exam: 10/25/2020NickieTREY milligan [id number]#: Fax: [phone] EXAM: MRI CERVICAL SPINE WITHOUT&WITH CONTRASTPROCEDURE INFORMATION:Exam: MR Cervical Spine Without and With ContrastExam date and time: 10/25/2020 2:52 PM Age: 49 years oldClinical indication: Neck painTECHNIQUE: I maging protocol: Multiplanar magnetic resonance images of thecervical spine without and with intravenous contrast. Contrast material:PROHANCE; Contrast volume: 20 ml; Contrast route: INTRAVENOUS (IV);COMPARISON: MRI CERVICAL SPINE WITHOUT CONTRAST 12/13/2019 1:35 PMFINDINGS:Vertebrae: The cervical vertebral bodies are normal in height, withoutabnormal subluxation or acute marrow edema. The cervical lordosis isstraightened.Spinal cord: No visualized cervical spinal cord edema or compression. Nopathological enhancement within the cervical spinal canal.Multilevel findings: Degenerative disc disease is noted at multiplecervical levels, with a decrease in the T2 signal intensity of the discs aswell as disc bulge/osteophyte complexes.C2-C3: No significant narrowing of the thecal sac or right neural foramen.Mild left neural foraminal narrowing, with uncovertebral hypertrophy.C3-C4: Mild disc bulging, without significant narrowing of the thecal sac.Mild bilateral neural foraminal narrowing, with uncovertebral hypertrophy.C4-C5: Mild disc bulging again causing a minimal impression on the ventralthecal sac, without significant overall narrowing. Moderate right neuralforaminal narrowing, with uncovertebral hypertrophy. No significantnarrowing of the left neural foramen.C5-C6: A broad-based disc bulge is identified causing minimal stablenarrowing of the thecal sac. Moderate bilateral neural foraminal narrowing.C6-C7: Mild disc bulging, without significant narrowing of the thecal sac.Moderate to severe bilateral neural foraminal narrowing. A decrease in discheight is visualized.C7-T1: There is no significant narrowing of the thecal sac or neuralforamina. No posterior disc herniation.Vertebral arteries: Expected flow voids in the vertebral arteries.Soft tissues: No significant prevertebral soft tissue swelling.IMPRESSION:1. Degenerative changes are noted at multiple cervical levels, as describedabove.2. Minimal stable narrowing of the thecal sac at C5- C6.3. Neural foraminal narrowing identified from C2-C3 through C6-C7.4. The cervical lordosis is straightened. This can be associated withmuscle spasms.Thank you for allowing us to participate in the care of your patient.Dictated and Authenticated by: Donavon Turner MD 10/26/2020 9:29 PMEastern Time ([place] & [place])VradV/jmcTrosiek you for referring KEYLA HERNANDES to our office. Electronically Signed - LAMBERTO 10/30/20 11:51 Name Value Range Interpretation Code Description Data Lolita rce(s) Supporting Document(s) ID Date Data Source [id number] 10/23/2020 10:29:00 AM EST [facility] ([facility]) Name Value Range Interpretation Code Description Data Lolita rce(s) Supporting Document(s) Creatinine For GFR 1.18 mg/dL 0.70-1.30 [facility] ([facility]) Glomerular Filtration Rate Laboratory test result [facility] ([facility]) <content>Units are mL/min/1.73 m2</content>
<content></content>
<content>Chronic Kidney Disease Staging per NKF:</content>
<content></content>
<content>Stage I & II GFR >=60 Normal to Mildly Decreased</content>
<content>Stage III GFR 30- 59 Moderately Decreased</content>
<content>Stage IV GFR 15-29 Severely Decreased</content>
<content>Stage V GFR <15 Very Little GFR Left</content>
<content>ESRD GFR <15 on WIRE TESTER</content>
<content></content> ID Date Data Source [id number] 10/23/2020 10:29:00 AM EST [facility] ([facility]) Name Value Range Interpretation Code Description Data Lolita rce(s) Supporting Document(s) Urea nitrogen [Mass/volume] in Serum or Plasma 14 mg/dL 7-18 [facility] ([facility]) ID Date Data Source [id number] 09/13/2020 12:00:00 PM EDT [facility] ([facility]) Name Value Range Interpretation Code Description Data Lolita rce(s) Supporting Document(s) Coronavirus 2019 [facility] test result [facility] ([facility]) This nucleic acid amplification test was developed and its performance characteristics determined by [facility]. Nucleic acid amplification tests include PCR and TMA. This test has not been FDA cleared or approved. This test has been authorized by FDA under an Emergency Use Authorization (EUA). This test is only authorized for the duration of time the declaration that circumstances exist justifying the authorization of the emergency use of in vitro diagnostic tests for detection of SARS-CoV-2 virus and/or diagnosis of COVID-19 infection under section 564(b)(1) of the Act, 21 U.S.C. 360bbb-3 (b) (1), unless the authorization is terminated or revoked sooner. When diagnostic testing is negative, the possibility of a false negative result should be considered in the context of a patient's recent exposures and the presence of clinical signs and symptoms consistent with COVID-19. An individual without symptoms of COVID-19 and who is not shedding SARS-CoV-2 virus would expect to have a negative (not detected) result in this assay. Performed at: - [facility] [address] [id number] [employer]: Roxana Weinberg MD, Phone: [phone] Not Detected ID Date Data Source [id number] 09/13/2020 12:00:00 PM EDT [facility] Name Value Range Interpretation Code Description Data Lolita rce(s) Supporting Document(s) SARS coronavirus 2 RNA [facility] This lab was ordered by [facility] and reported by [facility]. ID Date Data Source José [id number] 09/08/2020 08:14:55 AM EDT eC W1 ([facility]) Name Value Range Interpretation Code Description Data Lolita rce(s) Supporting Document(s) 3x5 eCW1 ([facility]) Brown eCW1 ([facility]) 78 eCW1 ([facility]) eCW1 ([facility]) 100 eCW1 ([facility]) TNP eCW1 ([facility]) TNP eCW1 ([facility]) TNP eCW1 ([facility]) TNP eCW1 ([facility]) TNP eCW1 ([facility]) TNP eCW1 ([facility]) TNP eCW1 ([facility]) TNP eCW1 ([facility]) TNP eCW1 ([facility]) TNP eCW1 ([facility]) TNP eCW1 ([facility]) TNP eCW1 ([facility]) TNP eCW1 ([facility]) TNP eCW1 ([facility]) TNP eCW1 ([facility]) TNP eCW1 ([facility]) TNP eCW1 ([facility]) eCW1 ([facility]) eCW1 ([facility]) ID Date Data Source CBC - Complete Blood Count 09/05/2020 10:38:17 AM EDT eCW1 ( [facility]) Name Value Range Interpretation Code Description Data Lolita rce(s) Supporting Document(s) 4.22 eCW1 ([facility]) 8.3 eCW1 ([facility]) 12.5 eCW1 ([facility]) 89.8 eCW1 ([facility]) 37.9 eCW1 ([facility]) 13.1 eCW1 ([facility]) 29.6 eCW1 ([facility]) 33.0 eCW1 ([facility]) TNP eCW1 ([facility]) ID Date Data Source URINE CULTURE 09/05/2020 10:38:02 AM EDT eCW1 ([facility]) Name Value Range Interpretation Code Description Data Lolita rce(s) Supporting Document(s) Laboratory studies (set) URINE CULTU RE eCW1 ([facility]) ID Date Data Source PT & APTT 09/04/2020 05:20:23 AM EDT eCW1 ([facility]) Name Value Range Interpretation Code Description Data Lolita rce(s) Supporting Document(s) 13.7 eCW1 ([facility]) 28.8 eCW1 ([facility]) 1.03 eCW1 ([facility]) ID Date Data Source UA URINALYSIS 09/04/2020 05:20:19 AM EDT eCW1 ([facility]) Name Value Range Interpretation Code Description Data Lolita rce(s) Supporting Document(s) Laboratory studies (set) UA URINALYS IS eCW1 ([facility]) ID Date Data Source Basic Metabolic Profile (BMP) 09/04/2020 05:19:53 AM EDT eCW 1 ([facility]) Name Value Range Interpretation Code Description Data Lolita rce(s) Supporting Document(s) 86 eCW1 ([facility]) 18 eCW1 ([facility]) 3.8 eCW1 ([facility]) 141 eCW1 ([facility]) 56.4 eCW1 ([facility]) 1.42 eCW1 ([facility]) 106 eCW1 ([facility]) 9.6 eCW1 ([facility]) 30 eCW1 ([facility]) ID Date Data Source [id number] 09/02/2020 09:30:00 AM EDT [facility] Name Value Range Interpretation Code Description Data Lolita rce(s) Supporting Document(s) SARS coronavirus 2 RNA [facility] This lab was ordered by [facility] and reported by [facility]. ID Date Data Source [id number] 08/05/2020 09:00:00 AM EDT [facility] Name Value Range Interpretation Code Description Data Lolita rce(s) Supporting Document(s) SARS coronavirus 2 RNA [facility] This lab was ordered by [facility] and reported by [facility]. ID Date Data Source [id number] 08/04/2020 10:25:42 PM EDT [facility] Name Value Range Interpretation Code Description Data Lolita rce(s) Supporting Document(s) &PDF [facility] GAXMGn0qGzMQCpSs17/ZKXbdBZOgn5TdKTjuEFj7NKcvYVBpK1YqgQgrSEpFTV9EV90vTpPUKBVmLCFn oRX [file] Et5Xe8do8qoWZ/qREIw04V/tacduzqQ9Dz2+Xj 5u1M0ifRyC0DvW5LuUS4RbY2ZtzUyxBUt+jAAi9ShXptCeUVegLce2KiZZPmzGkOjxlKGjGaWctnlQd4 M1SG0mVUUZ5Ah6Rxfidx5xMDcBQMdHeKpzE40mQ4r94ds1aB81hmvv22gJlk9uIc9UXWiM9etPk2RyAY s+YJV/Foster/k8taJjxgYFsUOA1+jUr0vFNhoLrB8CaJ [file] dZ8sAJhnLwAivjCLQGQ+psychiatric np+Wkyy1v6H5TrJb4I61pml8jrO/lNhFAZlvw5HpvPNh9zN3X/ArnZeURdR [file] AgICAgICAgICAgICAgICAgICAgICAgICAgICAgICAgICAgICAgICAgICAgICAgICAgICAgICAgICAgIC AgICAgICAgICAgICAgICAgICAgICAgDQogICAgICAg ICAgICAgICAgICAgICAgICAgICAgICAgICAgICAgICAgICAgICAgICAgICAgICAgICAgICAgICAgICAg ICAgICAgICAgICAgICAgICAgICAgICAgICAgICAgICAgDQogICAgICAgICAgICAgICAgICAgICAgICAg ICAgICAgICAgICAgICAgICAgICAgICAgICAgICAgIC AgICAgICAgICAgICAgICAgICAgICAgICAgICAgICAgICAgICAgICAgICAgDQogICAgICAgICAgICAgIC AgICAgICAgICAgICAgICAgICAgICAgICAgICAgICAgICAgICAgICAgICAgICAgICAgICAgICAgICAgIC AgICAgICAgICAgICAgICAgICAgICAgICAgDQogICAg ICAgICAgICAgICAgICAgICAgICAgICAgICAgICAgICAgICAgICAgICAgICAgICAgICAgICAgICAgICAg ICAgICAgICAgICAgICAgICAgICAgICAgICAgICAgICAgICAgDQogICAgICAgICAgICAgICAgICAgICAg ICAgICAgICAgICAgICAgICAgICAgICAgICAgICAgIC AgICAgICAgICAgICAgICAgICAgICAgICAgICAgICAgICAgICAgICAgICAgICAgDQogICAgICAgICAgIC AgICAgICAgICAgICAgICAgICAgICAgICAgICAgICAgICAgICAgICAgICAgICAgICAgICAgICAgICAgIC AgICAgICAgICAgICAgICAgICAgICAgICAgICAgDQog ICAgICAgICAgICAgICAgICAgICAgICAgICAgICAgICAgICAgICAgICAgICAgICAgICAgICAgICAgICAg ICAgICAgICAgICAgICAgICAgICAgICAgICAgICAgICAgICAgICAgDQogICAgICAgICAgICAgICAgICAg ICAgICAgICAgICAgICAgICAgICAgICAgICAgICAgIC AgICAgICAgICAgICAgICAgICAgICAgICAgICAgICAgICAgICAgICAgICAgICAgICAgDQogICAgICAgIC AgICAgICAgICAgICAgICAgICAgICAgICAgICAgICAgICAgICAgICAgICAgICAgICAgICAgICAgICAgIC AgICAgICAgICAgICAgICAgICAgICAgICAgICAgICAg MDm9Q0ctEGEwQHBhOZ1pKRc0Aa5+TCoBWnIcIYI9zjKziM1WIV1cx2TiVGdwMYGnm5ErFAz9US1AXSTs QOdfKM4WPDtpvf2XXACqLZBwfIUHa4flYjAwBWN4OOYyJifeTC8UHYQeZ2chvtKdPVLmRYFRVKonEXBM FC1BJmNsK5DhaZ92AHMNOc7+DQplbmRvYmoNCjMzID Bqb3OtBTw9RK9MISVnMEpzXX5QHFXvsP6pZKqqWU9YMePfULGfNIXMByAmD87wtMEcHLw5G6HtZlBtGI VkRmlsZXMgPDwvTmFtZXMgWyBdDQogID4+ID4+BSqaJV0RDOimaqShPEBqIw1OAMRqBYV9VZNfhOOmDg ViVANWZPacFM4VdBEaGNJ8oC0aCSfeKQMzBJCkR0tL DoAuoHshNL69sIdjxuZzhMNzWZk+Tj1YZS9oe3DnAYg0qkYwWPmfBJB0KBgoTREuQVLzFMLfVZF9VXD8 EKJMHtUvGLKcOAKrFPrlEROdXGLuyv4DIKGdKNTtOxR2UlMcEHPxMHHpLMepSXAxWEZuEZaiZICzBRNd DZ2OQrLwHYTsZVVwNVPjXYXmJOAruk6WKSZkLJRlMs F1RlRbHKBeJTKhKLuaDVMbHNSrZFMkXHEcFDLmDF2KPwIeZSNqLSJjOEosHHEhYKQmfn6IMQDmYQZaTt N9YaGgARTaTDHgKRzjLHJfMHL9AlCiTZQvAXBmQT0VJlDrCYWwOPh2FSneIAUuBVOkps7DWVFbPKXyPz LwOXVwNBDvSYVoCLdmJKLqRQB5OUr5VVQxRIDkYH9X ApBmAEAkNAq2VFguKWJxSTLlvl9PWGYiVUJfURl1XiKzFMDzMFLzUNfdLIPfKMHiCWXdOTPrRECpWF6H VsVzAZPxRTIeVPVgMPLnBOVkqo9ZDYCgDNAtART7JqSiREUbVXYwZJvmIJGoHLZ9MtAxQDYvCSCcNN7R DiFsRFYlAWW1AWhqLYTlBDTtae6FLPNiYILePXH7DC DdZOLyZMTzLEkzJXTpCUB5VLy0XOPqWVPsFD5RWvOpXAGeNPPnPUqrMVJgEBMzsr7ELIHjTIAqUQyuBh UeZTHcLMWmFZlbNGNbCGW0WfOsNCYsQHYfQN9KGmDdZXDpDaU1AaojMTVkKGBtqt4SKWXjHAB5NXU8Xd UsNVZmFDKiLCmiENUqNNS4SiQkRCUiENDmXK9CBtSt LIHtSwQ7CsIhNLWxXLAmti9ZKUJyDMJ5WJpvQKDrUQXhVBYdKMwsWTTnVQb4NZr0JYDaRCLpBJ4ZEqIs PXRbGEJxJeChOJXlUJXwau7UTPYuVPOwDqRfFkOwULCfKMRtEVsbZYYvUHJ7KCt4USGkAULdXZ3QYoFi EMviKMDWCke5CCbzF2d7BOIdIZ6EY3Dlb5SiLkLoSY VPSWlwFL2mcqBqGYJkKp9BY4gURrs4Z1CwMVI3QDu3BvIqKqQxQzQ8XWU4MFB3UNRrDTXkYf9oJCy5I8 KlICy6EHh9BVUcDDMpROa3JJGyBgmfPWEgTuMsUqPtFO6FTb7PZeO5UUR7yZVrZl6NQNN9WyP9KIxrSM VPRg0K Procedure Social History Code Duration Value Status Description Data Source(s ) Alcohol intake 08/17/2021 12:00:00 AM EDT Lifetime non-drinker (finding) completed Lifetime [facility]finding[facility] Tobacco use and exposure 08/17/2021 12:00:00 AM EDT Never used co mpleted Never used [facility] Smoking 08/17/2021 12:00:00 AM EDT Never smoker completed Never s moker [facility] Alcohol intake 05/25/2021 12:00:00 AM EDT Current drinker of al cohol (finding) completed Current drinker of alcohol (finding) [facility] Smoking 05/24/2021 12:00:00 AM EDT Patient has never smoked co mpleted Patient has never smoked [facility] ([facility]) Alcohol intake 01/24/2021 12:00:00 AM EST Yes completed [facility] Smoking 01/24/2021 12:00:00 AM EST Former smoker completed Former smoker [facility] Vital Signs ID Date Data Source UNK Name Value Range Interpretation Code Description Data Source(s) Systolic blood pressure 110 mm[Hg] 110 mm[Hg] [facility] Diastolic blood pressure 70 mm[Hg] 70 mm[Hg] [facility] Heart rate 87 /min 87 /min [facility] Body height 180.3 cm 180.3 cm [facility] Body weight 100.699 kg 100.699 kg [facility] Body mass index (BMI) [Ratio] 30.96 kg/m2 30.96 kg/m2 [facility] Oxygen saturation in Arterial blood by Pulse oximetry 98 % 98 % [facility] Systolic blood pressure 100 mm[Hg] 100 mm[Hg] [facility] Diastolic blood pressure 70 mm[Hg] 70 mm[Hg] [facility] Heart rate 73 /min 73 /min [facility] Respiratory rate 18 /min 18 /min [facility] Body height 180.3 cm 180.3 cm [facility] Body weight 99.338 kg 99.338 kg [facility] Body mass index (BMI) [Ratio] 30.54 kg/m2 30.54 kg/m2 [facility] Oxygen saturation in Arterial blood by Pulse oximetry 97 % 97 % [facility] Body temperature 97.1 [degF] 97.1 [degF] [facility] ([facility]) Body height 70 [in_i] 70 [in_i] [facility] ([facility]) 5'10" Body weight 214.50 [lb_av] 214.50 [lb_av] [facility] ([facility]) Body mass index (BMI) [Ratio] 30.8 kg/m2 30.8 k g/m2 [facility] ([facility]) Body weight 230 [lb_av] 230 [lb_av] eCW1 ([facility]) Body height 70.25 [in_i] 70.25 [in_i] eCW1 ([facility]) Body mass index (BMI) [Ratio] 32.76 kg/m2 32.76 kg/m2 eCW1 ([facility]) Heart rate 92 /min 92 /min eCW1 ([facility]) Respiratory rate 17 /min 17 /min eCW1 ([facility]) Body temperature 98.2 [degF] 98.2 [degF] eCW1 ( [facility]) Systolic blood pressure 122 mm[Hg] 122 mm[Hg] e CW1 ([facility]) Diastolic blood pressure 83 mm[Hg] 83 mm[Hg] eCW1 ([facility]) Systolic blood pressure 130 mm[Hg] 130 mm[Hg] [facility] Diastolic blood pressure 80 mm[Hg] 80 mm[Hg] [facility] Heart rate 89 /min 89 /min [facility] Body height 180.3 cm 180.3 cm [facility] Body weight 102.513 kg 102.513 kg [facility] Body mass index (BMI) [Ratio] 31.52 kg/m2 31.52 kg/m2 [facility] Oxygen saturation in Arterial blood by Pulse oximetry 98 % 98 % [facility] Body weight 232 [lb_av] 232 [lb_av] eCW1 ([facility]) Body height 70.25 [in_i] 70.25 [in_i] eCW1 ([facility]) Body mass index (BMI) [Ratio] 33.05 kg/m2 33.05 kg/m2 eCW1 ([facility]) Heart rate 87 /min 87 /min eCW1 ([facility]) Respiratory rate 18 /min 18 /min eCW1 ([facility]) Body temperature 97.4 [degF] 97.4 [degF] eCW1 ( [facility]) Systolic blood pressure 137 mm[Hg] 137 mm[Hg] e CW1 ([facility]) Diastolic blood pressure 92 mm[Hg] 92 mm[Hg] eCW1 ([facility]) Body height 70 [in_i] 70 [in_i] [facility] ([facility]) 5'10" Body weight 233.12 [lb_av] 233.12 [lb_av] [facility] T ([facility]) Body mass index (BMI) [Ratio] 33.4 kg/m2 33.4 k g/m2 [facility] ([facility]) Body temperature 97.7 [degF] 97.7 [degF] [facility] ([facility]) Body temperature 97.1 [degF] 97.1 [degF] [facility] ([facility]) Body mass index (BMI) [Ratio] 32.1 kg/m2 32.1 k g/m2 [facility] ([facility]) Body height 70.5 [in_i] 70.5 [in_i] [facility] ([facility]) 5'10.50" Body weight 227.00 [lb_av] 227.00 [lb_av] [facility] T ([facility]) Body temperature 97.1 [degF] 97.1 [degF] [facility] ([facility]) Body weight 225 [lb_av] 225 [lb_av] eCW1 ([facility]) Body height 70.25 [in_i] 70.25 [in_i] eCW1 ([facility]) Body mass index (BMI) [Ratio] 32.05 kg/m2 32.05 kg/m2 eCW1 ([facility]) Heart rate 206 /min 206 /min eCW1 ([facility]) Respiratory rate 18 /min 18 /min eCW1 ([facility]) Body temperature 95.6 [degF] 95.6 [degF] eCW1 ( [facility]) Systolic blood pressure 138 mm[Hg] 138 mm[Hg] e CW1 ([facility]) Diastolic blood pressure 84 mm[Hg] 84 mm[Hg] eCW1 ([facility]) Body weight 221 [lb_av] 221 [lb_av] eCW1 ([facility]) Body height 70.25 [in_i] 70.25 [in_i] eCW1 ([facility]) Body mass index (BMI) [Ratio] 31.48 kg/m2 31.48 kg/m2 eCW1 ([facility]) Heart rate 97 /min 97 /min eCW1 ([facility]) Respiratory rate 18 /min 18 /min eCW1 ([facility]) Body temperature 96.0 [degF] 96.0 [degF] eCW1 ( [facility]) Systolic blood pressure 118 mm[Hg] 118 mm[Hg] e CW1 ([facility]) Diastolic blood pressure 70 mm[Hg] 70 mm[Hg] eCW1 ([facility]) Patient Treatment Plan of Care Planned Activity Planned Date Details Description Data Source (s) apixaban 5 MG Oral Tablet [Eliquis] 08/17/2021 12:00:00 AM EDT [facility] Lisinopril 2.5 MG Oral Tablet 05/25/2021 12:00:00 AM EDT [facility] Methylprednisolone 4 MG Oral Tablet 05/19/2021 12:00:00 AM EDT [facility] pregabalin 25 MG Oral Capsule 04/27/2021 12:00:00 AM EDT [facility] sildenafil 100 MG Oral Tablet 01/24/2021 12:00:00 AM EST [facility] gabapentin 800 MG Oral Tablet 01/16/2021 12:00:00 AM EST [facility] Acetaminophen 325 MG / Hydrocodone Bitartrate 5 MG Ora l Tablet 12/15/2020 12:00:00 AM EST [facility] duloxetine 20 MG Delayed Release Oral Capsule 11/11/2020 12:00:00 A M EST [facility] apixaban 5 MG Oral Tablet [Eliquis] 07/18/2020 12:00:00 AM EDT [facility] Lisinopril 10 MG Oral Tablet 07/18/2020 12:00:00 AM EDT [facility] Tamsulosin hydrochloride 0.4 MG Oral Capsule 07/11/2020 12:00:00 AM EDT [facility] gabapentin 600 MG Oral Tablet 06/07/2020 12:00:00 AM EDT [facility] 24 HR Diltiazem Hydrochloride 180 MG Extended Release Oral Capsule [facility] tramadol hydrochloride 50 MG Oral Tablet [facility] Acetaminophen 325 MG / Oxycodone Hydrochloride 5 MG Oral Tablet [facility] 24 HR Diltiazem Hydrochloride 180 MG Extended Release Oral Capsule [facility] Colchicine 0.6 MG Oral Capsule [facility] Diclofenac Sodium 0.01 MG/MG Topical Gel [facility] Diazepam 5 MG Oral Tablet [facility]
== END 2021-10-02 14:12 | disposition left against medical advice (07) ==
LOC: M ED 11:16
DX: G89.29 Other chronic pain (principal); M54.2 Cervicalgia; I11.0 Hypertensive heart disease with heart failure; I50.9 Heart failure, unspecified; I48.91 Unspecified atrial fibrillation; E03.9 Hypothyroidism, unspecified; Z87.442 Personal history of urinary calculi; Z79.899 Other long term (current) drug therapy; Z79.01 Long term (current) use of anticoagulants

== ENCOUNTER → 2021-11-05 | Outpatient (CLI) | payer OTHER ==
[~2021-11-05] MED LIST changes: +PREG25CA2
--- NOTE | 2021-11-06 14:57 | REP ---
INDICATION: SUPERIOR GLENOID LABRUN LESION OF RT SHOULDER. COMPARISON: 10/25/2020. TECHNIQUE: Sagittal and axial sequences obtained. FINDINGS: The vertebral bodies are normal in height and well aligned. No compression fracture is seen. No abnormal bone marrow signal is seen. There is diffuse loss of water signal and disc degeneration with slight disc space narrowing at C4-5, C5-6 and C6-7. there is no abnormal signal in the cervical spinal cord. There is nonspecific straightening of the normal cervical lordosis. At C2-3 there is mild left-sided foraminal narrowing secondary to uncinate spurring. There is no spinal stenosis. At C3-4 there is minimal disc osteophyte complex and mild uncinate spurring. There is no spinal canal stenosis or neural foraminal narrowing. At C4-5 there is mild disc osteophyte complex without spinal canal stenosis or neural foraminal narrowing. At C5-6 there is mild disc osteophyte complex with uncinate spurring bilaterally. There is no spinal canal stenosis. There is moderate to severe right and moderate left neural foraminal narrowing. At C6-7 mild disc osteophyte complex is noted with bilateral uncinate spurring. There is no central canal stenosis. There is moderate right and mild left foraminal narrowing. IMPRESSION: No acute abnormalities. Degenerative changes as discussed in detail above without spinal canal stenosis. There is neural foraminal narrowing at the C5-6 and C6-7 levels. <Electronically signed by Mike House > 11/06/21 [id number]
== END ==
LOC: M RAD 17:36
PROVIDERS: ATTEND Physician Assistant Surgical
DX: S43.431A Superior glenoid labrum lesion of right shoulder, initial encounter (principal); M48.02 Spinal stenosis, cervical region; M25.78 Osteophyte, vertebrae; Y92.9 Unspecified place or not applicable; Y93.9 Activity, unspecified; Y99.9 Unspecified external cause status

== ENCOUNTER → 2021-11-14 | Outpatient (CLI) | payer OTHER ==
[~2021-11-14] MED LIST changes: +ISOVUE-300 61% 50ML VIAL As Ordered ONE; +LIDOCAINE 1% MDV 20ML VIAL As Ordered ONE; +TRIAMCINOLONE ACETONIDE SUSP 40 MG/ML VIAL (J3301) As Ordered ONE
--- NOTE | 2021-11-14 18:02 | REP ---
INDICATION: SUPERIOR GLENOID LABRUM LESION OF RT SHOULDER. TECHNIQUE: The procedure was performed by JOE Ospina, under the direct supervision of Dr. Freedman. The benefits and risks of the procedure were explained to the patient, and an informed consent was obtained. Directly prior to the start of the procedure, a formal time-out was completed in the procedure room. The right shoulder joint space was localized using fluoroscopic guidance. The skin was prepped and draped in a sterile fashion. Approximately 5 mL of 1% Lidocaine 10 mg/ml was used as a local anesthetic. Using fluoroscopic guidance, a #22 gauge spinal needle was inserted and advanced into the right shoulder joint space. Approximately 2 mL of Isovue 300 was injected to verify placement. Five mL of a solution containing 3 mL 1% lidocaine 10 mg/ml and 2 mL Kenalog 40 mg/mL was injected into the joint space. The needle was removed and hemostasis was achieved. FINDINGS: The patient tolerated the procedure well and there were no immediate complications. IMPRESSION: 1. Technically successful right shoulder injection. 0.1 minutes of fluoroscopy time was utilized for this procedure. Some fluoroscopic images are performed with last image hold technology. These images require no additional radiation. <Electronically signed by Cleopatra Mccabe > 11/14/21 [id number] <Electronically signed by Donavon Freedman > 11/14/21 [id number]
== END ==
LOC: M RADPRO 12:34
PROVIDERS: ATTEND Physician Assistant Surgical
DX: S43.431A Superior glenoid labrum lesion of right shoulder, initial encounter (principal)
CPT/HCPCS: 20610; 77002; J3301; Q9967

== ENCOUNTER → 2022-02-13 | Outpatient (REF) | payer OTHER ==
[~2022-02-13] MED LIST changes: -FENO134C PO; +FENO134C16 PO; -ISOVUE-300 61% 50ML VIAL As Ordered ONE; -LIDOCAINE 1% MDV 20ML VIAL As Ordered ONE; -TRIAMCINOLONE ACETONIDE SUSP 40 MG/ML VIAL (J3301) As Ordered ONE
[2022-02-13 12:53] LABS: APPEARANCE, URINE CLEAR (CLEAR); BACTERIA, URINE AUTO NEGATIVE (NEGATIVE); BILIRUBIN, URINE AUTO NEGATIVE (NEGATIVE); BLOOD, URINE BLOOD NEGATIVE (NEGATIVE); COLOR, URINE STRAW (YELLOW); GLUCOSE, URINE (UA) AUTO NEGATIVE (NEGATIVE); KETONE, URINE AUTO NEGATIVE (NEGATIVE); LEUKOCYTE ESTERASE, URINE AUTO NEGATIVE (NEGATIVE); MUCUS, URINE SMALL (NEGATIVE); NITRITE, URINE AUTO NEGATIVE (NEGATIVE); PROTEIN, URINE AUTO NEGATIVE (NEGATIVE); RBC, URINE AUTO 0 /HPF (0-3); SPECIFIC GRAVITY URINE AUTO 1.004 (1.002-1.035); SQUAMOUS EPITHELIAL CELL UR AU 0 /HPF (0-6); UROBILINOGEN, URINE AUTO 0.2 mg/dL (0.0-2.0); WBC, URINE AUTO 0 /HPF (0-3)
== END ==
LOC: M LAB REF 12:04
PROVIDERS: ATTEND Physician Assistant
DX: N39.0 Urinary tract infection, site not specified (principal)

== ENCOUNTER 2022-05-29 09:25 | Emergency (ER) | payer OTHER ==
[~2022-05-29] VITALS: Ht 180.3 cm; Wt 101.8 kg
[2022-05-29 11:45] VITALS: BP 142/79
== END 2022-05-29 11:46 | disposition home or self-care (01) ==
LOC: M ED 09:25
DX: M70.21 Olecranon bursitis, right elbow (principal); I10 Essential (primary) hypertension; I50.9 Heart failure, unspecified; E03.9 Hypothyroidism, unspecified; F41.9 Anxiety disorder, unspecified; I48.91 Unspecified atrial fibrillation; E78.00 Pure hypercholesterolemia, unspecified; Z79.899 Other long term (current) drug therapy; Z79.01 Long term (current) use of anticoagulants

== ENCOUNTER → 2022-08-23 | Outpatient (CLI) | payer OTHER ==
[2022-08-23 10:47] LABS: HEMOGLOBIN A1c 5.7 %
[2022-08-23 11:16] LABS: BLOOD UREA NITROGEN 15 MG/DL (7-18); CALCIUM LEVEL 9.8 MG/DL (8.5-10.1); CARBON DIOXIDE LEVEL 34 MEQ/L (21-32); CHLORIDE LEVEL 104 MEQ/L (98-107); CHOLESTEROL LEVEL 131 MG/DL (<200); CHOLESTEROL RISK RATIO 3.358 (<5); CREATININE FOR GFR 1.28 MG/DL (0.70-1.30); GLOMERULAR FILTRATION RATE > 60.0 (>56); GLUCOSE, FASTING 77 MG/DL (70-100); HDL CHOLESTEROL 39 MG/DL (>40); LDL CHOLESTEROL 72 MG/DL (<100); NON-HDL-C 92 MG/DL; POTASSIUM SERUM 4.1 MEQ/L (3.5-5.1); SODIUM LEVEL 140 MEQ/L (136-145); TRIGLYCERIDES LEVEL 99 MG/DL (<150); URIC ACID 4.8 MG/DL (3.5-7.2)
== END ==
LOC: M WUC 08:08
PROVIDERS: ATTEND Family Medicine
DX: M10.9 Gout, unspecified (principal); E66.9 Obesity, unspecified; E03.9 Hypothyroidism, unspecified; E78.2 Mixed hyperlipidemia

== ENCOUNTER 2022-09-28 16:23 | Emergency (ER) | payer OTHER ==
[~2022-09-28] VITALS: Ht 180.3 cm; Wt 100.5 kg
[~2022-09-28 16:23] MED LIST changes: -FENO134C16 PO; +FENO134C20 PO
[2022-09-28] MEDS ORDERED: LISI5TAB11 (16:35)
[2022-09-28] MEDS ORDERED: PRED10TA2 (16:35)
[2022-09-28] MEDS ORDERED: SPIR-10 (16:35)
[2022-09-28] MEDS ORDERED: OMEPRAZOLE 20MG CAP PO ONE (18:00)
[2022-09-28] MEDS ORDERED: SUCRALFATE 1 GM TAB PO ONE (18:00)
[2022-09-28] MEDS ORDERED: GI COCKTAIL 50ML BTL(HYOSCYAMINE/MAALOX/LIDOCAINE VISCOUS)(1:3:1) PO ONE (18:00)
[2022-09-28 18:28] LABS: BASO # 0.1 10^3/uL (0.0-0.2); BASO % 0.4 % (0.0-1.0); EOS % 0.2 % (0.0-3.0); HEMATOCRIT 40.9 % (42.0-52.0); HEMOGLOBIN 13.8 g/dl (13.5-17.5); LYMPH # 1.8 10^3/uL (1.5-5.0); LYMPH % 14.4 % (24.0-44.0); MEAN CORPUSCULAR HEMOGLOBIN 30.5 pg (27.0-33.0); MEAN CORPUSCULAR HGB CONC 33.7 g/dl (32.0-36.5); MEAN CORPUSCULAR VOLUME 90.3 fl (80.0-96.0); MONO # 0.5 10^3/uL (0.0-0.8); MONO % 3.9 % (2.0-8.0); NEUTROPHILS # 10.2 10^3/uL (1.5-8.5); NEUTROPHILS % 80.7 % (36.0-66.0); PLATELET COUNT, AUTOMATED 217 10^3/uL (150-450); RED BLOOD COUNT 4.53 10^6/uL (4.30-6.10); WHITE BLOOD COUNT 12.7 10^3/uL (4.0-10.0)
[2022-09-28 19:04] LABS: ALBUMIN 3.8 GM/DL (3.2-5.2); BILIRUBIN,DIRECT 0.1 MG/DL (0.0-0.2); BILIRUBIN,TOTAL 0.3 MG/DL (0.2-1.0); CK-MB VALUE MASS 2.9 NG/ML (<3.6); MB/CK RELATIVE INDEX 0.77 (< OR =4); TOTAL PROTEIN 7.2 GM/DL (6.4-8.2)
[2022-09-28] MEDS ORDERED: OMEP-173 PO (20:29)
[2022-09-28] MEDS ORDERED: CARA1TAB6 PO (20:29)
[2022-09-28 20:39] VITALS: BP 134/87
== END 2022-09-28 20:41 | disposition home or self-care (01) ==
LOC: M ED 16:23
DX: R11.2 Nausea with vomiting, unspecified (principal); I48.91 Unspecified atrial fibrillation; I11.0 Hypertensive heart disease with heart failure; I50.9 Heart failure, unspecified; Z87.442 Personal history of urinary calculi; E78.5 Hyperlipidemia, unspecified; G47.30 Sleep apnea, unspecified; E03.9 Hypothyroidism, unspecified; Z79.01 Long term (current) use of anticoagulants; Z79.899 Other long term (current) drug therapy

== ENCOUNTER → 2023-02-12 | Emergency (ER) | payer OTHER ==
[~2023-02-12] VITALS: Ht 180.3 cm; Wt 102.2 kg
[~2023-02-12] MED LIST changes: +CARA1TAB6 PO; +LISI5TAB11; +OMEP-173 PO; +POLY2.5S OD; +PRED10TA2; +SPIR-10
[2023-02-12 12:26] VITALS: BP 139/93
== END | disposition home or self-care (01) ==
LOC: M ED 12:25
DX: H10.32 Unspecified acute conjunctivitis, left eye (principal); I11.9 Hypertensive heart disease without heart failure; K21.9 Gastro-esophageal reflux disease without esophagitis; Z79.899 Other long term (current) drug therapy

== ENCOUNTER → 2023-09-23 | Outpatient (CLI) | payer MEDICARE ==
[~2023-09-23] MED LIST changes: -PREG25CA2; +PREG25CA3
== END ==
LOC: M SLEEP 20:00
PROVIDERS: ATTEND Internal Medicine Critical Care Medicine
DX: G47.33 Obstructive sleep apnea (adult) (pediatric) (principal)

== ENCOUNTER → 2023-10-08 | Outpatient (CLI) | payer MEDICARE ==
[2023-10-08 14:47] LABS: BASO # 0.1 10^3/uL (0.0-0.2); BASO % 1.1 % (0.0-1.0); EOS # 0.4 10^3/uL (0.0-0.5); EOS % 4.8 % (0.0-3.0); HEMATOCRIT 41.2 % (42.0-52.0); HEMOGLOBIN 13.9 g/dl (13.5-17.5); LYMPH # 3.1 10^3/uL (1.5-5.0); LYMPH % 38.2 % (24.0-44.0); MEAN CORPUSCULAR HEMOGLOBIN 31.4 pg (27.0-33.0); MEAN CORPUSCULAR HGB CONC 33.7 g/dl (32.0-36.5); MONO # 0.6 10^3/uL (0.0-0.8); MONO % 7.7 % (2.0-8.0); NEUTROPHILS # 3.9 10^3/uL (1.5-8.5); PLATELET COUNT, AUTOMATED 132 10^3/uL (150-450); RED BLOOD COUNT 4.43 10^6/uL (4.30-6.10); WHITE BLOOD COUNT 8.2 10^3/uL (4.0-10.0)
[2023-10-08 15:03] LABS: HEMOGLOBIN A1c 5.4 % (4.0-6.0)
[2023-10-08 15:21] LABS: ALBUMIN 3.9 G/DL (3.2-5.2); ALKALINE PHOSPHATASE 54 U/L (46-116); ALT/SGPT 62 U/L (7.0-40); AST/SGOT 35 U/L (<34); BILIRUBIN,TOTAL 0.4 MG/DL (0.3-1.2); BLOOD UREA NITROGEN 14 MG/DL (9-23); CALCIUM LEVEL 9.8 MG/DL (8.5-10.1); CARBON DIOXIDE LEVEL 28 MMOL/L (20-31); CHLORIDE LEVEL 104 MMOL/L (98-107); CHOLESTEROL LEVEL 149 MG/DL (<200); CHOLESTEROL RISK RATIO 4.18 (<5); CREATININE FOR GFR 0.97 MG/DL (0.70-1.30); FREE T4 0.84 NG/DL (0.89-1.76); GLOMERULAR FILTRATION RATE > 60.0 (>56); GLUCOSE, FASTING 98 MG/DL (60-100); HDL CHOLESTEROL 35.6 MG/DL (>40); NON-HDL-C 113.4 MG/DL; SODIUM LEVEL 138 MMOL/L (136-145); TOTAL PROTEIN 6.9 G/DL (5.7-8.2); TRIGLYCERIDES LEVEL 242 MG/DL (<150)
== END ==
LOC: M WUC 10:24
PROVIDERS: ATTEND Family Medicine
DX: E78.2 Mixed hyperlipidemia (principal); E66.9 Obesity, unspecified

== ENCOUNTER → 2023-11-05 | Outpatient (CLI) | payer OTHER ==
[2023-11-05 11:32] LABS: FREE T4 1.04 NG/DL (0.89-1.76); THYROID STIMULATING HORMONE 6.649 uIU/ML (0.55-4.78)
[2023-11-05 11:36] LABS: THYROID PEROXIDASE ANTIBODY < 28.0 U/ML (<60.0)
== END ==
LOC: M WUC 09:36
PROVIDERS: ATTEND Family Medicine
DX: R79.89 Other specified abnormal findings of blood chemistry (principal)

== ENCOUNTER → 2023-11-22 | Outpatient (CLI) | payer OTHER | LOC: M RAD 11-01 08:44 | PROVIDERS: ATTEND Physical Medicine & Rehabilitation | DX: M50.11 Cervical disc disorder with radiculopathy, high cervical region (principal); M47.812 Spondylosis without myelopathy or radiculopathy, cervical region; M50.121 Cervical disc disorder at C4-C5 level with radiculopathy; M50.122 Cervical disc disorder at C5-C6 level with radiculopathy; M50.123 Cervical disc disorder at C6-C7 level with radiculopathy; M50.23 Other cervical disc displacement, cervicothoracic region ==

== ENCOUNTER → 2024-01-08 | Outpatient (CLI) | payer OTHER ==
[2024-01-08 13:13] LABS: FREE T4 0.86 NG/DL (0.89-1.76)
[2024-01-08 13:14] LABS: THYROID STIMULATING HORMONE 2.208 uIU/ML (0.55-4.78)
== END ==
LOC: M WUC 09:58
PROVIDERS: ATTEND Family Medicine
DX: E03.8 Other specified hypothyroidism (principal)

== ENCOUNTER → 2025-06-08 | Outpatient (CLI) | payer MEDICARE, MEDICAID ==
[~2025-06-08] MED LIST changes: -FLOM0.4C39 PO; +GABA-1635; -GABA800T4; +METO200T15 PO; -METO200T28 PO; +TAMS-18 PO
[2025-06-08 12:28] LABS: BASO # 0.1 10^3/uL (0.0-0.2); BASO % 1.3 % (0.0-1.0); EOS # 0.7 10^3/uL (0.0-0.5); EOS % 8.1 % (0.0-3.0); LYMPH # 3.4 10^3/uL (1.5-5.0); LYMPH % 42.5 % (24.0-44.0); MONO # 0.5 10^3/uL (0.0-0.8); MONO % 6.5 % (2.0-8.0); NEUTROPHILS # 3.3 10^3/uL (1.5-8.5); NEUTROPHILS % 41.3 % (36.0-66.0); PLATELET COUNT, AUTOMATED 226 10^3/uL (150-450)
[2025-06-08 12:42] LABS: ALT/SGPT 57.0 U/L (7.0-40); AST/SGOT 47.0 U/L (<34); CALCIUM LEVEL 9.3 MG/DL (8.5-10.1); CARBON DIOXIDE LEVEL 24.0 MMOL/L (20-31); CHLORIDE LEVEL 108.0 MMOL/L (98-107); CHOLESTEROL LEVEL 120.0 MG/DL (<200); CHOLESTEROL RISK RATIO 3.47 (<5); CREATININE FOR GFR 1.06 MG/DL (0.70-1.30); GLOMERULAR FILTRATION RATE 83.4 (>56); LDL CHOLESTEROL 55.7 MG/DL (<100); NON-HDL-C 85.5 MG/DL; POTASSIUM SERUM 4.1 MMOL/L (3.5-5.1); SODIUM LEVEL 143.0 MMOL/L (136-145); TRIGLYCERIDES LEVEL 149.0 MG/DL (<150)
[2025-06-08 12:43] LABS: FREE T4 0.84 NG/DL (0.89-1.76)
[2025-06-08 12:44] LABS: ESTIMATED AVERAGE GLUCOSE 111.0 MG/DL (60-110)
== END ==
LOC: M WUC 09:20
PROVIDERS: ATTEND Family Medicine
DX: Z00.00 Encounter for general adult medical examination without abnormal findings (principal); E78.2 Mixed hyperlipidemia; M10.9 Gout, unspecified; E03.9 Hypothyroidism, unspecified